=== PATIENT | male | born 1965 | race Caucasian/White ===

== ENCOUNTER → 2016-11-24 | Outpatient (CLI) | payer BC | LOC: RAD 08:05 | PROVIDERS: ATTEND Internal Medicine | DX: C61 Malignant neoplasm of prostate (principal) | CPT/HCPCS: 71260; 74177 ==

== ENCOUNTER → 2016-11-27 | Outpatient (CLI) | payer BC | LOC: RAD 08:17 | PROVIDERS: ATTEND Internal Medicine | DX: C61 Malignant neoplasm of prostate (principal); C79.51 Secondary malignant neoplasm of bone | CPT/HCPCS: 78306; A9503; Q9969 ==

== ENCOUNTER 2017-01-24 08:19 | Day surgery (SDC) | payer BC ==
[~2017-01-24 08:19] MED LIST: BACITRACIN INJ 50,000 UNIT VIAL INJ PRN; CEFAZOLIN 1 GM/D5W RTU 1 GM/50 ML RTUPB IV PRN; DEXTROSE 5%-1/2 NORMAL SALINE 1,000 ML IV PRN
[2017-01-24 09:05] LABS: ABSOLUTE EOSINOPHILS # (AUTO) 0.3 10^3/uL (0.0-0.6); ABSOLUTE MONOCYTES (AUTO) 0.4 10^3/uL (0.1-1.4); ABSOLUTE NEUT (AUTO) 7.6 10^3/uL (1.7-8.2); BASOPHILS % (AUTO) 0.4 % (0-2); EOSINOPHILS % (AUTO) 2.7 % (0-6); HEMATOCRIT 37.7 % (37.9-51.0); HEMOGLOBIN 12.8 g/dL (13.5-17.0); HGB HCT DIFFERENCE 0.7; LYMPHOCYTES % (AUTO) 19.5 % (13-45); MEAN CORPUSCULAR HEMOGLOBIN 29.8 pg (27.0-33.4); MEAN CORPUSCULAR VOLUME 88 fl (80-97); MONOCYTES % (AUTO) 4.3 % (3-13); RED BLOOD COUNT 4.31 10^6/uL (4.35-5.55); RED CELL DISTRIBUTION WIDTH 13.2 % (11.5-14.0); SEGMENTED NEUTROPHILS % (AUTO) 73.1 % (42-78); WHITE BLOOD COUNT 10.5 10^3/uL (4.0-10.5)
[2017-01-24] MEDS ORDERED: FENTANYL CITRATE INJ/PF 100 MCG/2 ML AMPUL ONE (09:25)
[2017-01-24] MEDS ORDERED: MIDAZOLAM 2 MG/2 ML INJ ONE (09:25)
[2017-01-24 09:33] LABS: ANION GAP 13 (5-19); BLOOD UREA NITROGEN 24 mg/dL (7-20); CARBON DIOXIDE 27 mmol/L (22-30); CHLORIDE 103 mmol/L (98-107); CREATININE RESULT 0.93 mg/dL (0.52-1.25); GLUCOSE 100 mg/dL (75-110); POTASSIUM 4.5 mmol/L (3.6-5.0); SODIUM 142.7 mmol/L (137-145)
[2017-01-24] MEDS ORDERED: HEPARIN SODIUM,PORCINE/NS/PF 2,000 UNIT/1,000 ML RTUINJ IV ONE (09:59)
[2017-01-24] MEDS ORDERED: LIDOCAINE 0.5% INJ-PF (5 MG/ML) 50 ML SDV ONE (09:59)
[2017-01-24] MEDS ORDERED: OXYCODONE-ACETAMINOPHEN 5-325 MG TABLET ONE (10:02)
[2017-01-24] MEDS ORDERED: DIAZEPAM 5 MG TABLET ONE (10:03)
--- NOTE | 2017-01-24 12:14 | PDOC DISCHARGE SUMMARY ---
Discharge Summary (SDC) - Discharge Final Diagnosis: Prostate cancer Date of Surgery: 01/24/17 Discharge Date: 01/24/17 Condition: Good Treatment or Instructions: #1 discharge patient home after achieving ASU criteria. #2 continue medications per medication reconciliation sheet. #3 follow-up in office by appointment in about 1 week, call for appointment. #4 dressing to be left on until office. #5 may have scheduled treatments. Through PermCath. Hold off on using Port-A- Cath for at least 1 week, if possible. #6 may shower starting in 48 hours. Important to keep dressings clean and dry Discharge Diet: As Tolerated Respiratory Treatments at Home: Deep Breathing/Coughing Discharge Activity: Activity As Tolerated Report the Following to Your Physician Immediately: Shortness of Breath, Unusual Bleeding
[2017-01-24 14:14] VITALS: BP 110/74
--- NOTE | 2017-01-24 21:15 | EKG REPORT ---
SEVERITY:- NORMAL ECG - SINUS RHYTHM : Confirmed by: Beverly Elder 24-Jan-2017 21:15:01
--- NOTE | 2017-01-25 14:10 | Operative Report ---
Operative Report DATE OF SURGERY: 01/24/17 PREOPERATIVE DIAGNOSIS: Prostate cancer POSTOPERATIVE DIAGNOSIS: Prostate cancer OPERATION: #1 ultrasound evaluation and needle access into the left internal jugular vein. #2 insertion of Port-A-Cath via real-time access in the left internal jugular vein. #3 ultrasound evaluation and needle access into the right internal jugular vein. #4 insertion of permacatheter via real-time access in the right internal jugular vein. #5 angiogram and interpretation. SURGEON: CHANTELLE JONES MANAGER DIESEL: none ANESTHESIA: Moderate Sedation TISSUE REMOVED OR ALTERED: Not applicable COMPLICATIONS: None ESTIMATED BLOOD LOSS: 10 mL. INTRAOPERATIVE FINDINGS: Of satisfactory internal jugular veins each about 1.5 cm in diameter. Satisfactory and safe access on the real-time ultrasound guidance. Good position of the catheters with the tips well down in the right atrium and the case of the perm catheter, at the superior vena cava atrial junction in the case of the Port-A-Cath. Easy egress of blood through all ports and ingress of heparinized solution. Catheter angiograms demonstrates is demonstrated smooth flow of contrast through the right atrium, ventricle and pulmonary outflow tract. PROCEDURE: After obtaining informed consent, the patient was taken to the Benefits Consultant and positioned supine. The left neck and chest were prepared with chlorhexidine and draped out with sterile linen. After the " universal timeout", in which it was verified that the patient continued to receive antibiotic, the procedure commenced. A steriley sheathed ultrasound probe was used to evaluate the left internal jugular vein. Local anesthesia was infiltrated adjacent to the probe. Access into the left internal jugular vein was obtained using a micropuncture needle, followed by micropuncture wire and then a micropuncture catheter. This was followed by introduction of a 0.035 guidewire the tip of which was placed down into the inferior vena cava . The port sites was marked , locally anesthetized and incision made. Dissection now proceeded to the deep subcutaneous subcutaneous tissues so that a pocket for the port was made. Meticulous hemostasis was secured and the catheter was tunneled between the 2 incisions. Proximally, the catheter was now positioned using a peel-away sheath. Distally the catheter was tailored to an appropriate length and then mated to the port using the contained fixating device. The port was now placed in the pocket and the catheter optimally positioned. The port was accessed with a Zendejas needle and an angiogram done under digital subtraction. The findings as dictated. With adequate and satisfactory positioning, the lumen was irrigated with heparinized solution. The wounds were now closed using interrupted 3-0 PDS to the subcutaneous tissues and a continuous subcuticular suture of 4-0 Monocryl to the skin. These are reinforced with Steri-Strips over benzoin and then dressings applied. The right neck and chest were prepared with chlorhexidine and draped out with sterile linen. After the " universal timeout", in which it was verified that the patient continued to receive antibiotic, the procedure commenced. A steriley sheathed ultrasound probe was used to evaluate the right internal jugular vein. Local anesthesia was infiltrated adjacent to the probe. Access into the right internal jugular vein was obtained using a micropuncture needle, followed by micropuncture wire and then a micropuncture catheter. This was followed by introduction of a 0.035 guidewire the tip of which was placed down into the inferior vena cava . A 23 cm long perm catheter was now positioned over the chest and an exit site marked and locally anesthetized ,the catheter was placed between the 2 incisions. Proximally, the catheter was now positioned using a peel-away sheath, after dilation. Easy ingress of heparinized solution and egress of blood obtained through both ports. A completion angiogram was done by injecting contrast. The findings were as dictated. The neck incision was now closed using interrupted 3-0 PDS to the subcutaneous tissues, the catheter was anchored at the exit site using 3-0 PDS. A Biopatch device was now placed adjacent to the catheter. Dressings were applied and the procedure concluded. Copies of the dictated operative report for Dr. Chantelle Forde MD.concluded. Copies of the dictated operative report for Dr. Chantelle Forde MD.
== END 2017-01-24 13:30 | disposition home or self-care (01) ==
LOC: CCL 08:19
PROVIDERS: ATTEND Surgery
PROC: 05HM33Z Insertion of Infusion Device into Right Internal Jugular Vein, Percutaneous Approach (ICD-10-PCS; principal; 2017-01-24)
PROC: 05HN33Z Insertion of Infusion Device into Left Internal Jugular Vein, Percutaneous Approach (ICD-10-PCS; 2017-01-24)
DX: C61 Malignant neoplasm of prostate (principal); I10 Essential (primary) hypertension; F17.210 Nicotine dependence, cigarettes, uncomplicated; Z79.899 Other long term (current) drug therapy; Z79.891 Long term (current) use of opiate analgesic; Z88.2 Allergy status to sulfonamides
CPT/HCPCS: 36415; 85025; 80048; 36558; 36561; 76937; 77001; 71010; 93005; 93010; C1788; C1752 ×2; Q9967; J2250; J3490 ×2; J0690; J3010; J1644

== ENCOUNTER → 2017-05-07 | Outpatient (CLI) | payer BC ==
--- NOTE | 2017-05-07 12:12 | RADIOLOGY REPORT (SQ) ---
EXAM DESCRIPTION: CT CHEST WITH COMPLETED DATE/TIME: 05/07/2017 9:38 am REASON FOR STUDY: PROSTATE CA (C61), BONE CA (C79.51) C61 MALIGNANT NEOPLASM OF PROSTATE C79.51 SE CONDARY MALIGNANT NEOPLASM OF BONE COMPARISON: 11/24/2016 TECHNIQUE: CT scan of the chest performed using helical scanning technique with dynamic intravenous contrast injection. Images reviewed with lung, soft tissue and bone windows. Reconstructed coronal and sagittal MPR images reviewed. All images stored on PACS. All CT scanners at this facility use dose modulation, iterative reconstruction, and/or weight based d osing when appropriate to reduce radiation dose to as low as reasonably achievable (ALARA). [facility]: Dose Right [facility]: CareDose [facility]: Dose Right [facility]: Teradose 4D [facility]: [employer] CONTRAST TYPE AND DOSE: contrast/concentration: Isovue 370.00 mg/ml; Total Contrast Delivered: 84.0 ml; Total Saline Delivered: RENAL FUNCTION: BUN 21, creatinine 1.01 RADIATION DOSE: . LIMITATIONS: None. FINDINGS: LUNGS AND PLEURA: No opacities, nodules, masses. No pneumothorax. No effusions. HILAR AND MEDIASTINAL STRUCTURES: No identified masses or abnormal nodes. HEART AND VASCULAR STRUCTURES: No aneurysm or dissection. No central pulmonary emboli. No pericardi al effusion. HARDWARE: Wimizg-G-Qosv is in place. UPPER ABDOMEN: No significant findings. Limited exam. THYROID AND OTHER SOFT TISSUES: No masses. No adenopathy. BONES: There is diffuse osseous metastatic lesions stable in appearance. OTHER: No other significant finding. IMPRESSION: Widespread bony metastatic disease stable from prior exam. No other significant finding s. TECHNICAL DOCUMENTATION: JOB ID: [id number] Quality ID # 436: Final reports with documentation of one or more dose reduction techniques (e.g., Au tomated exposure control, adjustment of the mA and/or kV according to patient size, use of iterative reconstruction technique) 2010 [employer]- All Rights Reserved
--- NOTE | 2017-05-07 12:15 | RADIOLOGY REPORT (SQ) ---
EXAM DESCRIPTION: CT ABD/PELVIS WITH IV ORAL COMPLETED DATE/TIME: 05/07/2017 9:38 am REASON FOR STUDY: PROSTATE CA (C61), BONE CA (C79.51) C61 MALIGNANT NEOPLASM OF PROSTATE C79.51 SE CONDARY MALIGNANT NEOPLASM OF BONE COMPARISON: 11/24/2016 TECHNIQUE: CT scan of the abdomen and pelvis performed using helical scanning technique with dynamic intravenous contrast injection. No oral contrast. Images reviewed with lung, soft tissue, and bone windows. Reconstructed coronal and sagittal MPR images reviewed. Delayed images for evaluation of the urinary system also acquired. All images stored on PACS. All CT scanners at this facility use dose modulation, iterative reconstruction, and/or weight based d osing when appropriate to reduce radiation dose to as low as reasonably achievable (ALARA). [facility]: Dose Right [facility]: CareDose [facility]: Dose Right [facility]: Teradose 4D [facility]: [employer] CONTRAST TYPE AND DOSE: 84 mL Isovue 370 RENAL FUNCTION: BUN 21, creatinine 1.01 RADIATION DOSE: Up-to-date CT equipment and radiation dose reduction techniques were employed. CTDIv ol: 6.5 - 7.5 mGy. DLP: 1038 mGy-cm.. LIMITATIONS: None. FINDINGS: LOWER CHEST: No significant findings. No nodules or infiltrates. LIVER: Normal size. No masses. No dilated ducts. SPLEEN: Normal size. No focal lesions. PANCREAS: No masses. No significant calcifications. No adjacent inflammation or peripancreatic fluid collections. Pancreatic duct not dilated. GALLBLADDER: No identified stones by CT criteria. No inflammatory changes to suggest cholecystitis. ADRENAL GLANDS: No significant masses or asymmetry. RIGHT KIDNEY AND URETER: No solid masses. No significant calcifications. No hydronephrosis or hyd roureter. LEFT KIDNEY AND URETER: No solid masses. No significant calcifications. No hydronephrosis or hydr oureter. AORTA AND VESSELS: No aneurysm. No dissection. Renal arteries, SMA, celiac without stenosis. RETROPERITONEUM: No retroperitoneal adenopathy, hemorrhage or masses. BOWEL AND PERITONEAL CAVITY: No masses or inflammatory changes. No free fluid or peritoneal masses. APPENDIX: Surgically absent. PELVIS: No mass. No free fluid. Normal bladder. ABDOMINAL WALL: No masses. No hernias. BONES: There is widespread bony metastatic disease stable from prior study. OTHER: No other significant finding. IMPRESSION: Widespread osseous metastasis in the appendicular and axial skeleton. No other signific ant findings. TECHNICAL DOCUMENTATION: JOB ID: [id number] Quality ID # 436: Final reports with documentation of one or more dose reduction techniques (e.g., Au tomated exposure control, adjustment of the mA and/or kV according to patient size, use of iterative reconstruction technique) 2010 [employer]- All Rights Reserved
--- NOTE | 2017-05-07 15:01 | RADIOLOGY REPORT (SQ) ---
EXAM DESCRIPTION: NM WHOLE BODY BONE SCAN COMPLETED DATE/TIME: 05/07/2017 1:58 pm REASON FOR STUDY: PROSTATE CA (C61), BONE CA (C79.51) C61 MALIGNANT NEOPLASM OF PROSTATE C79.51 SE CONDARY MALIGNANT NEOPLASM OF BONE COMPARISON: 11/27/2016 RADIONUCLIDE AND DOSE: 20 millicuries Tc99m MDP. The route of agent administration: Intravenous. ADDITIONAL DRUGS AND DOSES: None. TECHNIQUE: Routine delayed images at 3 hours post radionuclide injection acquired of the bony skelet on including anterior and posterior whole-body projections and additional focused images as needed. LIMITATIONS: None. FINDINGS: BONES: There is abnormal uptake in the thoracic spine, lumbar spine, right hip, sacroiliac joints, above the left acetabulum, multiple ribs, the left side of the calvarium, the left side of t he left orbit. There are new areas of increased uptake in the thoracic spine and the uptake at the m argin of the left orbit has increased. KIDNEYS: Symmetric excretion without obstruction. OTHER: No other significant finding. IMPRESSION: Metastatic disease to bone which has worsened since the prior study. COMMENT: PQRS 3570F: Current bone scan is compared with any available plain radiographs, prior bone scans, and CT/MRI. TECHNICAL DOCUMENTATION: JOB ID: [id number] [employer]- All Rights Reserved
== END ==
LOC: RAD 08:38
PROVIDERS: ATTEND Internal Medicine
DX: C61 Malignant neoplasm of prostate (principal); C79.51 Secondary malignant neoplasm of bone
CPT/HCPCS: 78306; 71260; 74177; A9561; Q9969

== ENCOUNTER → 2017-08-16 | Outpatient (CLI) | payer BC ==
--- NOTE | 2017-08-16 10:34 | RADIOLOGY REPORT (SQ) ---
EXAM DESCRIPTION: CT CHEST WITH; CT ABD/PELVIS WITH IV ONLY COMPLETED DATE/TIME: 08/16/2017 9:42 am REASON FOR STUDY: C61 MALIGNANT NEOPLASM OF PROSTATE C61 MALIGNANT NEOPLASM OF PROSTATE COMPARISON: Bone scan 05/07/2017, 11/27/2016, 11/22/2015 CT chest abdomen pelvis 05/07/2017, 11/24/2016, 11/16/2015 CONTRAST TYPE AND DOSE: contrast/concentration: Isovue 370.00 mg/ml; Total Contrast Delivered: 84.0 ml; Total Saline Delivered: 69.0 ml RENAL FUNCTION: Creatinine 0.6 TECHNIQUE: CT scan of the chest performed using helical scanning technique with dynamic intravenous contrast injection. Images reviewed with lung, soft tissue and bone windows. Reconstructed coronal a nd sagittal MPR images reviewed. All images stored on PACS. CT scan of the abdomen and pelvis performed with intravenous and without oral contrastusing helical s sammie technique with dynamic intravenous contrast injection. Images reviewed with lung, soft tissu e and bone windows. Reconstructed coronal and sagittal MPR images reviewed. Delayed images for eval uation of the urinary system also acquired and evaluated. All images stored on PACS. All CT scanners at this facility use dose modulation, iterative reconstruction, and/or weight based d osing when appropriate to reduce radiation dose to as low as reasonably achievable (ALARA). [facility]: Dose Right [facility]: CareDose [facility]: Dose Right [facility]: Teradose 4D [facility]: [employer] RADIATION DOSE: Up-to-date CT equipment and radiation dose reduction techniques were employed. CTDIv ol: 6.1 - 7.0 mGy. DLP: 963 mGy-cm. . LIMITATIONS: None. FINDINGS: CHEST: LUNGS AND PLEURA: No opacities, nodules, masses. No pneumothorax. No effusions. HILAR AND MEDIASTINAL STRUCTURES: No identified masses or abnormal nodes. HEART AND VASCULAR STRUCTURES: No aneurysm or dissection. No central pulmonary emboli. No pericardi al effusion. HARDWARE: Left permanent central line tip superior vena cava THYROID AND OTHER SOFT TISSUES: No masses. No adenopathy. BONES: Diffuse osseous metastatic lesions from patient's known prostate cancer are stable. OTHER: No other significant finding. ABDOMEN AND PELVIS: LIVER: Normal size. No masses. No dilated ducts. SPLEEN: Normal size. No focal lesions. PANCREAS: No masses. No significant calcifications. No adjacent inflammation or peripancreatic fluid collections. Pancreatic duct not dilated. GALLBLADDER: No identified stones by CT criteria. No inflammatory changes to suggest cholecystitis. ADRENAL GLANDS: No significant masses or asymmetry. RIGHT KIDNEY AND URETER: No solid masses. No significant calcification. No hydronephrosis or hydroure ter. LEFT KIDNEY AND URETER: No solid masses. 2 mm left midpole intrarenal nonobstructive calcification. No hydronephrosis or hydroureter. AORTA AND VESSELS: No aneurysm. No dissection. Renal arteries, SMA, celiac without stenosis. RETROPERITONEUM: No retroperitoneal adenopathy, hemorrhage or masses. BOWEL AND PERITONEAL CAVITY: No masses or inflammatory changes. No free fluid or peritoneal masses. APPENDIX: Surgically absent ABDOMINAL WALL: No masses. No hernias. BONES: Diffuse sclerotic osseous metastatic lesions from patient's known prostate malignancy. No pat hologic fracture. PELVIS: Post prostatectomy. No free fluid. No masses or adenopathy. IMPRESSION: Diffuse osseous metastatic lesions over the chest abdomen and pelvis, similar compared t o previous exams. TECHNICAL DOCUMENTATION: JOB ID: [id number] Quality ID # 436: Final reports with documentation of one or more dose reduction techniques (e.g., Au tomated exposure control, adjustment of the mA and/or kV according to patient size, use of iterative reconstruction technique) 2010 [employer]- All Rights Reserved
--- NOTE | 2017-08-16 14:23 | RADIOLOGY REPORT (SQ) ---
EXAM DESCRIPTION: NM WHOLE BODY BONE SCAN COMPLETED DATE/TIME: 08/16/2017 1:27 pm REASON FOR STUDY: C61 MALIGNANT NEOPLASM OF PROSTATE C61 MALIGNANT NEOPLASM OF PROSTATE COMPARISON: BONE SCAN 05/07/2017, 11/27/2016, 11/22/2015 CT CHEST ABDOMEN PELVIS 08/16/2017, 05/07/2017 RADIONUCLIDE AND DOSE: 21.5 millicuries Tc99m MDP. The route of agent administration: Intravenous. ADDITIONAL DRUGS AND DOSES: None. TECHNIQUE: Routine delayed images at 3 hours post radionuclide injection acquired of the bony skelet on including anterior and posterior whole-body projections and additional focused images as needed. LIMITATIONS: None. FINDINGS: BONES: There is persistent increased uptake throughout the axial skeleton and right proxim al femur, unchanged from prior study. Stable increased uptake over the left calvarium and left upper outer orbital rim KIDNEYS: Symmetric excretion without obstruction. OTHER: No other significant finding. IMPRESSION: Persistent skeletal uptake similar compared to prior bone scan exams COMMENT: Quality measure 147: Current bone scan is compared with any available plain radiographs, p rior bone scans, and CT/MRI. TECHNICAL DOCUMENTATION: JOB ID: [id number] [employer]- All Rights Reserved
== END ==
LOC: RAD 09:00
PROVIDERS: ATTEND Internal Medicine
DX: C61 Malignant neoplasm of prostate (principal); C79.51 Secondary malignant neoplasm of bone
CPT/HCPCS: 78306; 71260; 74177; A9561; Q9969

== ENCOUNTER 2017-10-18 11:01 | Outpatient (CLI) | payer BC ==
[~2017-10-18 11:01] MED LIST changes: -BACITRACIN INJ 50,000 UNIT VIAL INJ PRN; -CEFAZOLIN 1 GM/D5W RTU 1 GM/50 ML RTUPB IV PRN; -DEXTROSE 5%-1/2 NORMAL SALINE 1,000 ML IV PRN; +FERRIC CARBOXYMALTOSE 750 MG in NORMAL SALINE 250 ML IV PRN; +NORMAL SALINE 250 ML IV PRN
[2017-10-18 11:31] VITALS: BP 110/68
== END 2017-10-18 14:02 | disposition home or self-care (01) ==
LOC: II 11:01 → 5TH 11:02 → II 14:02
PROVIDERS: ATTEND Internal Medicine
PROC: 3E043GC Introduction of Other Therapeutic Substance into Central Vein, Percutaneous Approach (ICD-10-PCS; principal; 2017-10-18)
DX: D50.8 Other iron deficiency anemias (principal); K90.49 Malabsorption due to intolerance, not elsewhere classified
CPT/HCPCS: 96367; J7050; J1439; 96365

== ENCOUNTER 2017-10-25 09:58 | Outpatient (CLI) | payer BC ==
[2017-10-25 10:23] VITALS: BP 113/64
== END 2017-10-25 11:00 | disposition home or self-care (01) ==
LOC: II 09:58 → 5TH 10:24 → II 11:00
PROVIDERS: ATTEND Internal Medicine
PROC: 3E033GC Introduction of Other Therapeutic Substance into Peripheral Vein, Percutaneous Approach (ICD-10-PCS; principal; 2017-10-25)
DX: D50.8 Other iron deficiency anemias (principal); K90.49 Malabsorption due to intolerance, not elsewhere classified
CPT/HCPCS: 96367; J7050; J1439; 96374

== ENCOUNTER → 2017-11-01 | Outpatient (CLI) | payer BC ==
--- NOTE | 2017-11-01 16:44 | RADIOLOGY REPORT (SQ) ---
EXAM DESCRIPTION: CT CHEST WITH; CT ABD/PELVIS WITH IV ONLY COMPLETED DATE/TIME: 11/01/2017 1:28 pm REASON FOR STUDY: PROSTATE CA (C61) C61 MALIGNANT NEOPLASM OF PROSTATE RENAL FUNCTION: Creatinine 0.9 TECHNIQUE: CT scan of the chest performed using helical scanning technique with dynamic intravenous contrast injection. Images reviewed with lung, soft tissue and bone windows. Reconstructed coronal a nd sagittal MPR images reviewed. All images stored on PACS. CT scan of the abdomen and pelvis performed with intravenous and without oral contrastusing helical s sammie technique with dynamic intravenous contrast injection. Images reviewed with lung, soft tissu e and bone windows. Reconstructed coronal and sagittal MPR images reviewed. Delayed images for eval uation of the urinary system also acquired and evaluated. All images stored on PACS. All CT scanners at this facility use dose modulation, iterative reconstruction, and/or weight based d osing when appropriate to reduce radiation dose to as low as reasonably achievable (ALARA). [facility]: Dose Right [facility]: CareDose [facility]: Dose Right [facility]: Teradose 4D [facility]: [employer] RADIATION DOSE: CT Rad equipment meets quality standard of care and radiation dose reduction techniq ues were employed. CTDIvol: 5.5 - 6.5 mGy. DLP: 859 mGy-cm. . LIMITATIONS: None. FINDINGS: CHEST: LUNGS AND PLEURA: No opacities, nodules, masses. No pneumothorax. No effusions. HILAR AND MEDIASTINAL STRUCTURES: No identified masses or abnormal nodes. HEART AND VASCULAR STRUCTURES: No aneurysm or dissection. No central pulmonary emboli. No pericardi al effusion. HARDWARE: Left-sided permanent central line tip superior vena cava THYROID AND OTHER SOFT TISSUES: No masses. No adenopathy. BONES: Extensive bony metastatic disease in the spine, ribs, sternum, and bilateral scapulae. OTHER: No other significant finding. ABDOMEN AND PELVIS: LIVER: Normal size. No masses. No dilated ducts. SPLEEN: Normal size. No focal lesions. PANCREAS: No masses. No significant calcifications. No adjacent inflammation or peripancreatic fluid collections. Pancreatic duct not dilated. GALLBLADDER: Contracted, not well seen ADRENAL GLANDS: No significant masses or asymmetry. RIGHT KIDNEY AND URETER: No solid masses. No significant calcification. No hydronephrosis or hydroure ter. LEFT KIDNEY AND URETER: No solid masses. No significant calcification. No hydronephrosis or hydrouret er. AORTA AND VESSELS: No aneurysm. No dissection. Renal arteries, SMA, celiac without stenosis. RETROPERITONEUM: No retroperitoneal adenopathy, hemorrhage or masses. BOWEL AND PERITONEAL CAVITY: No masses or inflammatory changes. No free fluid or peritoneal masses. APPENDIX: Surgically absent ABDOMINAL WALL: No masses. No hernias. PELVIS: No mass or free fluid. Normal bladder. BONES: Bony metastatic disease in the lumbar spine, sacrum, pelvis and bilateral proximal femurs OTHER: No other significant finding. IMPRESSION: Diffuse bony metastatic disease. No visceral metastatic lesions or pathologic adenopathy. TECHNICAL DOCUMENTATION: JOB ID: [id number] Quality ID # 436: Final reports with documentation of one or more dose reduction techniques (e.g., Au tomated exposure control, adjustment of the mA and/or kV according to patient size, use of iterative reconstruction technique) 2010 [employer]- All Rights Reserved COMPARISON: None. Bone scan 08/16/2017 CT chest abdomen and pelvis 11/16/2015, 11/24/2016, 05/07/2017, 08/16/2017 CONTRAST TYPE AND DOSE: contrast/concentration: Isovue 370.00 mg/ml; Total Contrast Delivered: 82.0 ml; Total Saline Delivered: 68.0 ml
== END ==
LOC: RAD 12:48
PROVIDERS: ATTEND Internal Medicine
DX: C61 Malignant neoplasm of prostate (principal); C79.51 Secondary malignant neoplasm of bone
CPT/HCPCS: 71260; 74177

== ENCOUNTER → 2017-11-14 | Outpatient (CLI) | payer BC ==
--- NOTE | 2017-11-14 13:31 | RADIOLOGY REPORT (SQ) ---
EXAM DESCRIPTION: NM WHOLE BODY BONE SCAN COMPLETED DATE/TIME: 11/14/2017 1:19 pm REASON FOR STUDY: PROSTATE CA (C61), PAIN IN UNSPEC SHOULDER (M25.519) C61 MALIGNANT NEOPLASM OF [place] M25.519 PAIN IN UNSPECIFIED SHOULDER COMPARISON: 08/16/2017 RADIONUCLIDE AND DOSE: 20.6 millicuries Tc99m MDP. The route of agent administration: Intravenous. ADDITIONAL DRUGS AND DOSES: None. TECHNIQUE: Routine delayed images at 3 hour post radionuclide injection acquired of the bony skeleto n including anterior and posterior whole-body projections and additional focused images as needed. LIMITATIONS: None. FINDINGS: BONES: Persistent increased uptake in the axial skeleton, left calvarium, left orbital rim , and proximal right femur. No definite new areas of abnormal uptake are identified. KIDNEYS: Symmetric excretion without obstruction. OTHER: No other significant finding. IMPRESSION: Stable bone metastasis. COMMENT: Quality measure 147: Current bone scan is compared with any available plain radiographs, p rior bone scans, and CT/MRI. TECHNICAL DOCUMENTATION: JOB ID: [id number] [employer]- All Rights Reserved
== END ==
LOC: RAD 08:58
PROVIDERS: ATTEND Internal Medicine
DX: C61 Malignant neoplasm of prostate (principal); M25.511 Pain in right shoulder
CPT/HCPCS: 78306; A9561; Q9969

== ENCOUNTER → 2018-01-25 | Outpatient (CLI) | payer BC ==
--- NOTE | 2018-01-25 10:41 | RADIOLOGY REPORT (SQ) ---
EXAM DESCRIPTION: CT CHEST WITH COMPLETED DATE/TIME: 01/25/2018 9:27 am REASON FOR STUDY: PROSTATE CA C61 MALIGNANT NEOPLASM OF PROSTATE COMPARISON: 11/01/2017 TECHNIQUE: CT scan of the chest performed using helical scanning technique with dynamic intravenous contrast injection. Images reviewed with lung, soft tissue and bone windows. Reconstructed coronal and sagittal MPR images reviewed. All images stored on PACS. All CT scanners at this facility use dose modulation, iterative reconstruction, and/or weight based d osing when appropriate to reduce radiation dose to as low as reasonably achievable (ALARA). [facility]: Dose Right [facility]: CareDose [facility]: Dose Right [facility]: Teradose 4D [facility]: [employer] [place] CONTRAST TYPE AND DOSE: See separate report of the same date. RENAL FUNCTION: See separate report of the same date. RADIATION DOSE: . LIMITATIONS: None. FINDINGS: LUNGS AND PLEURA: No opacities, nodules, masses. No pneumothorax. No effusions. HILAR AND MEDIASTINAL STRUCTURES: No identified masses or abnormal nodes. HEART AND VASCULAR STRUCTURES: No aneurysm or dissection. No central pulmonary emboli. No pericardi al effusion. HARDWARE: Left-sided port tip in the SVC. UPPER ABDOMEN: See separate report of the CT of the abdomen. THYROID AND OTHER SOFT TISSUES: No masses. No adenopathy. BONES: Sclerotic metastasis not significantly changed. OTHER: No other significant finding. IMPRESSION: Bone metastasis. No significant change. TECHNICAL DOCUMENTATION: JOB ID: [id number] Quality ID # 436: Final reports with documentation of one or more dose reduction techniques (e.g., Au tomated exposure control, adjustment of the mA and/or kV according to patient size, use of iterative reconstruction technique) 2010 [email or web address]- All Rights Reserved Reading location - IP/workstation name: [email or web address]
--- NOTE | 2018-01-25 10:58 | RADIOLOGY REPORT (SQ) ---
EXAM DESCRIPTION: CT ABD/PELVIS WITH IV ONLY COMPLETED DATE/TIME: 01/25/2018 9:27 am REASON FOR STUDY: PROSTATE CA C61 MALIGNANT NEOPLASM OF PROSTATE COMPARISON: 11/01/2017 TECHNIQUE: CT scan of the abdomen and pelvis performed using helical scanning technique with dynamic intravenous contrast injection. No oral contrast. Images reviewed with lung, soft tissue, and bone windows. Reconstructed coronal and sagittal MPR images reviewed. Delayed images for evaluation of the urinary system also acquired. All images stored on PACS. All CT scanners at this facility use dose modulation, iterative reconstruction, and/or weight based d osing when appropriate to reduce radiation dose to as low as reasonably achievable (ALARA). [facility]: Dose Right [facility]: CareDose [facility]: Dose Right [facility]: Teradose 4D [facility]: [employer] CONTRAST TYPE AND DOSE: contrast/concentration: Isovue 370.00 mg/ml; Total Contrast Delivered: 82.0 ml; Total Saline Delivered: 68.0 ml RENAL FUNCTION: GFR > 60. RADIATION DOSE: CT Rad equipment meets quality standard of care and radiation dose reduction techniq ues were employed. CTDIvol: 6.0 - 8.7 mGy. DLP: 1157 mGy-cm.. LIMITATIONS: Artifact from clips right lower quadrant. FINDINGS: LOWER CHEST: See separate report of the CT of the chest. LIVER: Normal size. No masses. No dilated ducts. SPLEEN: Normal size. No focal lesions. PANCREAS: No masses. No significant calcifications. No adjacent inflammation or peripancreatic fluid collections. Pancreatic duct not dilated. GALLBLADDER: No identified stones by CT criteria. No inflammatory changes to suggest cholecystitis. ADRENAL GLANDS: No significant masses or asymmetry. RIGHT KIDNEY AND URETER: No solid masses. No significant calcifications. No hydronephrosis or hyd roureter. LEFT KIDNEY AND URETER: No solid masses. No significant calcifications. No hydronephrosis or hydr oureter. AORTA AND VESSELS: No aneurysm. No dissection. Renal arteries, SMA, celiac without stenosis. RETROPERITONEUM: No retroperitoneal adenopathy, hemorrhage or masses. BOWEL AND PERITONEAL CAVITY: No masses or inflammatory changes. No free fluid or peritoneal masses. APPENDIX: Not visualized. PELVIS: No mass. No free fluid. Normal bladder. ABDOMINAL WALL: No masses. No hernias. BONES: Diffuse sclerotic metastatic lesions. No pathologic fracture. OTHER: No other significant finding. IMPRESSION: Skeletal metastasis. No significant change. TECHNICAL DOCUMENTATION: JOB ID: [id number] Quality ID # 436: Final reports with documentation of one or more dose reduction techniques (e.g., Au tomated exposure control, adjustment of the mA and/or kV according to patient size, use of iterative reconstruction technique) 2010 [employer]- All Rights Reserved Reading location - IP/workstation name: [email or web address] [id number]
--- NOTE | 2018-01-25 14:43 | RADIOLOGY REPORT (SQ) ---
EXAM DESCRIPTION: NM WHOLE BODY BONE SCAN COMPLETED DATE/TIME: 01/25/2018 2:16 pm REASON FOR STUDY: PROSTATE CA C61 MALIGNANT NEOPLASM OF PROSTATE COMPARISON: 11/14/2017 RADIONUCLIDE AND DOSE: 21.6 millicuries Tc99m HDP. The route of agent administration: Intravenous. ADDITIONAL DRUGS AND DOSES: None. TECHNIQUE: Routine delayed images at 3 hour post radionuclide injection acquired of the bony skeleto n including anterior and posterior whole-body projections and additional focused images as needed. LIMITATIONS: None. FINDINGS: BONES: Persistent increased uptake in the axial skeleton, left calvarium, left orbital rim , proximal right femur. There is less intense uptake at several lesions in the thoracic spine, howev er the significance is uncertain. No new areas of abnormal uptake. KIDNEYS: Symmetric excretion without obstruction. OTHER: No other significant finding. IMPRESSION: Stable bone metastasis. COMMENT: Quality measure 147: Current bone scan is compared with any available plain radiographs, p rior bone scans, and CT/MRI. TECHNICAL DOCUMENTATION: JOB ID: [id number] [email or web address]- All Rights Reserved Reading location - IP/workstation name: [facility]
== END ==
LOC: RAD 08:18
PROVIDERS: ATTEND Internal Medicine
DX: C61 Malignant neoplasm of prostate (principal); C79.51 Secondary malignant neoplasm of bone
CPT/HCPCS: 78306; 71260; 74177; A9561; Q9969

== ENCOUNTER → 2018-04-19 | Outpatient (CLI) | payer BC ==
--- NOTE | 2018-04-19 10:47 | RADIOLOGY REPORT (SQ) ---
EXAM DESCRIPTION: CT CHEST WITH; CT ABD/PELVIS WITH IV ONLY COMPLETED DATE/TIME: 04/19/2018 8:56 am REASON FOR STUDY: PROSTATE CA C61 MALIGNANT NEOPLASM OF PROSTATE COMPARISON: CT chest abdomen pelvis 01/25/2018, 11/01/2017, 08/16/2017 Bone scans 01/25/2018, 11/14/2017, 08/16/2017 CONTRAST TYPE AND DOSE: contrast/concentration: Isovue 370.00 mg/ml; Total Contrast Delivered: 79.0 ml; Total Saline Delivered: 68.0 ml RENAL FUNCTION: Creatinine 0.9 TECHNIQUE: CT scan of the chest performed using helical scanning technique with dynamic intravenous contrast injection. Images reviewed with lung, soft tissue and bone windows. Reconstructed coronal a nd sagittal MPR images reviewed. All images stored on PACS. CT scan of the abdomen and pelvis performed with intravenous and without oral contrastusing helical s sammie technique with dynamic intravenous contrast injection. Images reviewed with lung, soft tissu e and bone windows. Reconstructed coronal and sagittal MPR images reviewed. Delayed images for eval uation of the urinary system also acquired and evaluated. All images stored on PACS. All CT scanners at this facility use dose modulation, iterative reconstruction, and/or weight based d osing when appropriate to reduce radiation dose to as low as reasonably achievable (ALARA). [facility]: Dose Right [facility]: CareDose [facility]: Dose Right [facility]: Teradose 4D [facility]: [employer] RADIATION DOSE: CT Rad equipment meets quality standard of care and radiation dose reduction techniq ues were employed. CTDIvol: 5.6 - 6.2 mGy. DLP: 825 mGy-cm. . LIMITATIONS: None. FINDINGS: CHEST: LUNGS AND PLEURA: No opacities, nodules, masses. No pneumothorax. No effusions. HILAR AND MEDIASTINAL STRUCTURES: No identified masses or abnormal nodes. HEART AND VASCULAR STRUCTURES: No aneurysm or dissection. No central pulmonary emboli. No pericardi al effusion. HARDWARE: Left permanent line with the tip in the superior vena cava THYROID AND OTHER SOFT TISSUES: No masses. No adenopathy. BONES: Diffuse bony metastatic disease, similar compared to previous exams OTHER: No other significant finding. ABDOMEN AND PELVIS: LIVER: Normal size. No masses. No dilated ducts. SPLEEN: Normal size. No focal lesions. PANCREAS: No masses. No significant calcifications. No adjacent inflammation or peripancreatic fluid collections. Pancreatic duct not dilated. GALLBLADDER: No identified stones by CT criteria. No inflammatory changes to suggest cholecystitis. ADRENAL GLANDS: No significant masses or asymmetry. RIGHT KIDNEY AND URETER: No solid masses. No significant calcification. No hydronephrosis or hydroure ter. LEFT KIDNEY AND URETER: No solid masses. No significant calcification. No hydronephrosis or hydrouret er. AORTA AND VESSELS: No aneurysm. No dissection. Renal arteries, SMA, celiac without stenosis. RETROPERITONEUM: No retroperitoneal adenopathy, hemorrhage or masses. BOWEL AND PERITONEAL CAVITY: No masses or inflammatory changes. No free fluid or peritoneal masses. APPENDIX: Surgically absent ABDOMINAL WALL: No masses. No hernias. PELVIS: No mass or free fluid. Normal bladder. BONES: Diffuse bony metastatic disease, with heavy burden of disease throughout the pelvis and right proximal femur. This is similar compared to previous studies OTHER: No other significant finding. IMPRESSION: Diffuse bony metastatic disease over the chest abdomen and pelvis Otherwise unremarkable study aside from post appendectomy change and a left-sided permanent central l ine with the tip in the superior vena cava TECHNICAL DOCUMENTATION: JOB ID: [id number] Quality ID # 436: Final reports with documentation of one or more dose reduction techniques (e.g., Au tomated exposure control, adjustment of the mA and/or kV according to patient size, use of iterative reconstruction technique) 2010 [employer]- All Rights Reserved Reading location - IP/workstation name: [facility]-RR
--- NOTE | 2018-04-19 16:19 | RADIOLOGY REPORT (SQ) ---
EXAM DESCRIPTION: NM WHOLE BODY BONE SCAN COMPLETED DATE/TIME: 04/19/2018 2:37 pm REASON FOR STUDY: PROSTATE CA C61 MALIGNANT NEOPLASM OF PROSTATE COMPARISON: Prior bone scan 06/25/2015, 11/14/2017, 01/25/2018 RADIONUCLIDE AND DOSE: 21 millicuries Tc99m MDP. The route of agent administration: Intravenous. ADDITIONAL DRUGS AND DOSES: None. TECHNIQUE: Routine delayed images at 3 hours post radionuclide injection acquired of the bony skelet on including anterior and posterior whole-body projections and additional focused images as needed. LIMITATIONS: None. FINDINGS: BONES: Stable bony metastatic lesions in the calvarium, right scapula, cervicothoracic and lumbar spine, pelvis, and right femur. Since 2014, patient has had radiation therapy to the lower thoracic and upper lumbar spine. No abnor mal uptake in this area is seen. KIDNEYS: Symmetric excretion without obstruction. OTHER: No other significant finding. IMPRESSION: Stable bony metastatic disease COMMENT: Quality measure 147: Current bone scan is compared with any available plain radiographs, p rior bone scans, and CT/MRI. TECHNICAL DOCUMENTATION: JOB ID: [id number] [employer]- All Rights Reserved Reading location - IP/workstation name: [email or web address]
== END ==
LOC: RAD 08:18
PROVIDERS: ATTEND Internal Medicine
DX: C61 Malignant neoplasm of prostate (principal); C79.51 Secondary malignant neoplasm of bone
CPT/HCPCS: 82565; 78306; 71260; 74177; A9561; Q9969

== ENCOUNTER → 2018-05-04 | Outpatient (CLI) | payer BC ==
--- NOTE | 2018-05-04 21:49 | RADIOLOGY REPORT (SQ) ---
EXAM DESCRIPTION: MRI RT LOWER JOINT COMBO COMPLETED DATE/TIME: 05/04/2018 11:27 am REASON FOR STUDY: LOW BACK PAIN/RAIN IN RIGHT HIP, SECONDARY MALIGNANT NEOPLASM OF BONE C79.51 SECO NDARY MALIGNANT NEOPLASM OF BONE COMPARISON: None. TECHNIQUE: Right hip images acquired and stored on PACS. Multiplanar images to include fat sensitive sequences as T1, fluid sensitive sequences as T2/STIR and gradient echo sequences. Large FOV fat and fluid sensitive sequences include pelvis and opposite hip. LIMITATIONS: None. FINDINGS: BONE CORTEX AND MARROW: Diffuse sclerotic metastatic lesions throughout the lower lumbar s pine, bony pelvis, and right proximal femur similar compared to prior bone scan 04/19/2018. No marrow edema along the right proximal femur worrisome for radiographically occult fracture. Tiny deposit o f metastatic disease in the left femoral neck. RIGHT HIP: FEMORAL HEAD: Intact ACETABULUM: No acetabular dysplasia. No subchondral cysts. LABRUM: Intact TROCHANTER: No trochanteric bursal effusion. No edema/fluid at the insertions of the gluteus medius and gluteus minimus. LEFT HIP: Limited evaluation. No worrisome bone lesions. No significant effusion. PELVIS, LOWER LUMBAR SPINE, SACROILIAC JOINTS: PELVIS : Diffuse bony metastatic disease. SI joints unremarkable. L SPINE: Diffuse bony metastatic disease. MUSCLES AND SOFT TISSUES: Adductors and piriformis normal. Abductors and greater trochanteric bursa n ormal without edema or fluid. Iliopsoas bursa without fluid. Hamstring attachments without edema or t ear. PELVIC SOFT TISSUES: No masses or adenopathy. SCIATIC NERVE: Identified, without masses or abnormal signal. OTHER: No other significant finding. IMPRESSION: Diffuse bony metastatic disease from patient's known prostate cancer. Heavy burden of i nvolvement in the proximal right femur without marrow edema to suggest radiographically occult fractu re. TECHNICAL DOCUMENTATION: JOB ID: [id number] [employer]- All Rights Reserved Reading location - IP/workstation name: [email or web address]
--- NOTE | 2018-05-04 22:01 | RADIOLOGY REPORT (SQ) ---
EXAM DESCRIPTION: MRI LUMBAR SPINE COMBO COMPLETED DATE/TIME: 05/04/2018 11:26 am REASON FOR STUDY: LOW BACK PAIN/RAIN IN RIGHT HIP, SECONDARY MALIGNANT NEOPLASM OF BONE C79.51 SECO NDARY MALIGNANT NEOPLASM OF BONE COMPARISON: MRI right hip same date Bone scan 04/19/2018 CT chest abdomen pelvis 04/19/2018 TECHNIQUE: Sagittal and Axial imaging includes T1, T1 post gadolinium, T2, STIR and gradient echo se quences. Coronal T2/HASTE imaging. CONTRAST TYPE AND DOSE: 15 mL ProHance gadolinium RENAL FUNCTION: GFR > 60. LIMITATIONS: None. FINDINGS: VISUALIZED UPPER ABDOMEN: Limited evaluation. No acute or suspicious findings suggested. SEGMENTATION: No transitional anatomy. The lowest well-developed disc space is labeled L5-S1. ALIGNMENT: Anatomic. VERTEBRAE: Intact. No fractures. BONE MARROW: Heavy burden of disease in the lumbar spine with sclerotic metastatic lesions from patie nt's known prostate malignancy. No epidural extraosseous tumor is identified. DISC SIGNAL: Diffuse decreased T2 weighted intervertebral disc signal. POSTERIOR ELEMENTS: Generally intact. No pars defect evident. HARDWARE: None in the spine. CORD AND CONUS: Normal in size and signal intensity. Conus at the L1 level. SOFT TISSUES: No aortic aneurysm seen. No bulky retroperitoneal adenopathy or mass. No paraspinal mas s or fluid. L1-L2: No significant spinal stenosis or exit foraminal stenosis. L2-L3: Mild diffuse posterior disc bulging. Mild bilateral facet and ligament hypertrophy. Borderli ne central canal narrowing. Mild bilateral inferior foraminal narrowing without exiting L2 nerve rita t impingement. L3-L4: Mild diffuse posterior disc bulge and bony spurring is present with moderate bilateral facet a nd ligament hypertrophy. Moderate central canal narrowing with effacement of the CSF around the lumb ar nerve roots on axial T2 image 21. There is moderate right and left foraminal narrowing without de finite exiting L3 nerve root impingement. L4-L5: Broad diffuse posterior disc bulging and moderate bilateral facet and ligament hypertrophy cau se mild central canal narrowing. There is mild bilateral foraminal narrowing from facet and uncovert ebral hypertrophy without definite exiting L4 nerve root impingement. L5-S1: Minimal posterior disc bulging, mild bilateral facet and ligament hypertrophy. No significant central or foraminal stenosis LOWER THORACIC: Incompletely imaged. No stenosis seen. SACRUM: Diffuse bony metastatic involvement. ENHANCEMENT: No abnormal conus or nerve root enhancement. OTHER: No other significant findings. IMPRESSION: Diffuse bony metastatic disease. There are degenerative disc changes in the lumbar spin e with central canal stenosis most pronounced at L3-4. TECHNICAL DOCUMENTATION: JOB ID: [id number] [employer]- All Rights Reserved Reading location - IP/workstation name: [email or web address]
== END ==
LOC: RAD 09:04
PROVIDERS: ATTEND Physician Assistant Medical
DX: M25.551 Pain in right hip (principal); C79.51 Secondary malignant neoplasm of bone; M54.5 Low back pain; M51.36 Other intervertebral disc degeneration, lumbar region
CPT/HCPCS: 82565; 72158; 73723; A9576

== ENCOUNTER → 2018-08-08 | Outpatient (CLI) | payer BC ==
[2018-08-08 11:33] LABS: ABSOLUTE BASOPHILS # (AUTO) 0.1 10^3/uL (0.0-0.2); ABSOLUTE EOSINOPHILS # (AUTO) 0.2 10^3/uL (0.0-0.6); ABSOLUTE LYMPHOCYTES (AUTO) 2.1 10^3/uL (0.5-4.7); ABSOLUTE MONOCYTES (AUTO) 0.5 10^3/uL (0.1-1.4); ABSOLUTE NEUT (AUTO) 6.7 10^3/uL (1.7-8.2); BASOPHILS % (AUTO) 0.6 % (0-2); EOSINOPHILS % (AUTO) 2.3 % (0-6); HEMATOCRIT 35.6 % (37.9-51.0); HEMOGLOBIN 11.9 g/dL (13.5-17.0); LYMPHOCYTES % (AUTO) 21.8 % (13-45); MEAN CORPUSCULAR HEMOGLOBIN 30.8 pg (27.0-33.4); MEAN CORPUSCULAR HGB CONC 33.5 g/dL (32.0-36.0); MEAN CORPUSCULAR VOLUME 92 fl (80-97); MONOCYTES % (AUTO) 4.8 % (3-13); PLATELET COUNT 359 10^3/uL (150-450); RED BLOOD COUNT 3.88 10^6/uL (4.35-5.55); RED CELL DISTRIBUTION WIDTH 14.9 % (11.5-14.0); SEGMENTED NEUTROPHILS % (AUTO) 70.5 % (42-78); TOTAL CELLS COUNTED % (AUTO) 100 %; WHITE BLOOD COUNT 9.5 10^3/uL (4.0-10.5)
== END ==
LOC: OD 10:46
PROVIDERS: ATTEND Radiology Radiation Oncology
DX: C61 Malignant neoplasm of prostate (principal); R97.20 Elevated prostate specific antigen [PSA]
CPT/HCPCS: 36415; 85025

== ENCOUNTER → 2018-08-09 | Outpatient (CLI) | payer BC ==
--- NOTE | 2018-08-09 15:01 | RADIOLOGY REPORT (SQ) ---
EXAM DESCRIPTION: NM WHOLE BODY BONE SCAN COMPLETED DATE/TIME: 08/09/2018 2:44 pm REASON FOR STUDY: PROSTATE CA (C61), SECONDARY BONE CA (C79.51) C79.51 SECONDARY MALIGNANT NEOPLASM OF BONE COMPARISON: 04/19/2018 01/25/2018 RADIONUCLIDE AND DOSE: 20 millicuries Tc99m HDP. The route of agent administration: Intravenous. ADDITIONAL DRUGS AND DOSES: None. TECHNIQUE: Routine delayed images at 3 hours post radionuclide injection acquired of the bony skelet on including anterior and posterior whole-body projections and additional focused images as needed. LIMITATIONS: None. FINDINGS: BONES: Areas of abnormal uptake are seen in the calvarium, skull base, spine shoulders, an d ribs. There is a prominent area of new increased uptake in the tip of the right scapula. There is increased uptake in the left 7th rib laterally. There is new uptake in the left 9th rib. There is new uptake in the anterior superior iliac spine on the right. There is abnormal uptake in the right sacrum. KIDNEYS: Symmetric excretion without obstruction. OTHER: No other significant finding. IMPRESSION: Metastatic disease to bone with new uptake in the tip of the right scapula, right anteri or superior iliac spine, and in the left 9th rib. COMMENT: Quality measure 147: Current bone scan is compared with any available plain radiographs, p rior bone scans, and CT/MRI. TECHNICAL DOCUMENTATION: JOB ID: [id number] [employer]- All Rights Reserved Reading location - IP/workstation name: [email or web address]
== END ==
LOC: RAD 10:56
PROVIDERS: ATTEND Radiology Radiation Oncology
DX: C79.51 Secondary malignant neoplasm of bone (principal); C61 Malignant neoplasm of prostate
CPT/HCPCS: 78306; A9561; Q9969

== ENCOUNTER → 2018-08-16 | Outpatient (CLI) | payer BC | LOC: RAD 10:47 | PROVIDERS: ATTEND Radiology Radiation Oncology | DX: C61 Malignant neoplasm of prostate (principal); C79.51 Secondary malignant neoplasm of bone | CPT/HCPCS: 79101; A9606 ==

== ENCOUNTER → 2018-08-23 | Outpatient (CLI) | payer BC ==
[2018-08-23 13:53] LABS: ABSOLUTE BASOPHILS # (AUTO) 0.1 10^3/uL (0.0-0.2); ABSOLUTE EOSINOPHILS # (AUTO) 0.2 10^3/uL (0.0-0.6); ABSOLUTE LYMPHOCYTES (AUTO) 1.8 10^3/uL (0.5-4.7); ABSOLUTE MONOCYTES (AUTO) 0.5 10^3/uL (0.1-1.4); ABSOLUTE NEUT (AUTO) 5.4 10^3/uL (1.7-8.2); BASOPHILS % (AUTO) 0.7 % (0-2); EOSINOPHILS % (AUTO) 2.9 % (0-6); HEMATOCRIT 35.1 % (37.9-51.0); HEMOGLOBIN 11.8 g/dL (13.5-17.0); LYMPHOCYTES % (AUTO) 22.3 % (13-45); MEAN CORPUSCULAR HEMOGLOBIN 30.9 pg (27.0-33.4); MEAN CORPUSCULAR HGB CONC 33.7 g/dL (32.0-36.0); MEAN CORPUSCULAR VOLUME 92 fl (80-97); MONOCYTES % (AUTO) 6.6 % (3-13); PLATELET COUNT 327 10^3/uL (150-450); RED BLOOD COUNT 3.84 10^6/uL (4.35-5.55); SEGMENTED NEUTROPHILS % (AUTO) 67.5 % (42-78); TOTAL CELLS COUNTED % (AUTO) 100 %
== END ==
LOC: OD 13:24
PROVIDERS: ATTEND Radiology Radiation Oncology
DX: C61 Malignant neoplasm of prostate (principal); R97.20 Elevated prostate specific antigen [PSA]
CPT/HCPCS: 36415; 85025

== ENCOUNTER → 2018-09-05 | Outpatient (CLI) | payer BC ==
[2018-09-05 14:55] LABS: ABSOLUTE EOSINOPHILS # (AUTO) 0.2 10^3/uL (0.0-0.6); ABSOLUTE LYMPHOCYTES (AUTO) 1.6 10^3/uL (0.5-4.7); ABSOLUTE MONOCYTES (AUTO) 0.6 10^3/uL (0.1-1.4); ABSOLUTE NEUT (AUTO) 6.4 10^3/uL (1.7-8.2); BASOPHILS % (AUTO) 0.5 % (0-2); EOSINOPHILS % (AUTO) 2.3 % (0-6); HEMATOCRIT 34.8 % (37.9-51.0); HEMOGLOBIN 11.9 g/dL (13.5-17.0); LYMPHOCYTES % (AUTO) 17.6 % (13-45); MEAN CORPUSCULAR HEMOGLOBIN 31.3 pg (27.0-33.4); MEAN CORPUSCULAR HGB CONC 34.1 g/dL (32.0-36.0); MEAN CORPUSCULAR VOLUME 92 fl (80-97); MONOCYTES % (AUTO) 7.3 % (3-13); PLATELET COUNT 279 10^3/uL (150-450); RED BLOOD COUNT 3.78 10^6/uL (4.35-5.55); SEGMENTED NEUTROPHILS % (AUTO) 72.3 % (42-78); TOTAL CELLS COUNTED % (AUTO) 100 %; WHITE BLOOD COUNT 8.9 10^3/uL (4.0-10.5)
== END ==
LOC: OD 14:27
PROVIDERS: ATTEND Radiology Radiation Oncology
DX: C61 Malignant neoplasm of prostate (principal); R97.20 Elevated prostate specific antigen [PSA]
CPT/HCPCS: 36415; 85025

== ENCOUNTER → 2018-09-12 | Outpatient (CLI) | payer BC | LOC: RAD 11:48 | PROVIDERS: ATTEND Radiology Radiation Oncology | DX: C79.51 Secondary malignant neoplasm of bone (principal); C61 Malignant neoplasm of prostate | CPT/HCPCS: 79101; A9606 ==

== ENCOUNTER → 2018-10-03 | Outpatient (CLI) | payer BC ==
[2018-10-03 11:05] LABS: ABSOLUTE EOSINOPHILS # (AUTO) 0.2 10^3/uL (0.0-0.6); ABSOLUTE LYMPHOCYTES (AUTO) 1.3 10^3/uL (0.5-4.7); ABSOLUTE MONOCYTES (AUTO) 0.6 10^3/uL (0.1-1.4); BASOPHILS % (AUTO) 0.4 % (0-2); EOSINOPHILS % (AUTO) 2.8 % (0-6); HEMOGLOBIN 11.8 g/dL (13.5-17.0); LYMPHOCYTES % (AUTO) 16.1 % (13-45); MEAN CORPUSCULAR HGB CONC 33.8 g/dL (32.0-36.0); MEAN CORPUSCULAR VOLUME 92 fl (80-97); MONOCYTES % (AUTO) 7.2 % (3-13); PLATELET COUNT 256 10^3/uL (150-450); RED BLOOD COUNT 3.82 10^6/uL (4.35-5.55); RED CELL DISTRIBUTION WIDTH 14.9 % (11.5-14.0); SEGMENTED NEUTROPHILS % (AUTO) 73.5 % (42-78); TOTAL CELLS COUNTED % (AUTO) 100 %; WHITE BLOOD COUNT 8.1 10^3/uL (4.0-10.5)
== END ==
LOC: OD 10:15
PROVIDERS: ATTEND Radiology Radiation Oncology
DX: C61 Malignant neoplasm of prostate (principal); R97.20 Elevated prostate specific antigen [PSA]
CPT/HCPCS: 36415; 85025

== ENCOUNTER → 2018-10-07 | Outpatient (CLI) | payer BC ==
--- NOTE | 2018-10-07 09:38 | RADIOLOGY REPORT (SQ) ---
EXAM DESCRIPTION: U/S EXTREMITY NONVASCULAR COMP COMPLETED DATE/TIME: 10/07/2018 9:09 am REASON FOR STUDY: PROSTATE CA C61 MALIGNANT NEOPLASM OF PROSTATE COMPARISON: Whole-body bone scan 08/09/2018 CT angio chest 06/18/2018 CT abdomen pelvis 04/19/2018 MRI lumbar spine 05/04/2018 TECHNIQUE: Static and real time zamora scale ultrasound Doppler spectral analysis, and color Doppler a cquired along the palpable abnormalities left periscapular and right anterior thigh LIMITATIONS: None. FINDINGS: Palpable abnormality left periscapular region was evaluated. There is asymmetric thickeni ng of the right supraspinatus muscle as compared to the left. Soft tissue metastatic disease may be present. Palpable mass measures about 3.8 x 3.7 x 1.3 cm. In the anterior right side, palpable abnormality is present. There is a soft tissue mass in the uppe r aspect of the quadriceps muscles, measuring 5 x 4 x 3 cm in size worrisome for soft tissue metastat ic disease. IMPRESSION: Findings worrisome for soft tissue metastatic disease. TECHNICAL DOCUMENTATION: JOB ID: [id number] [employer]- All Rights Reserved Reading location - IP/workstation name: [facility]-[email or web address]
== END ==
LOC: RAD 08:36
PROVIDERS: ATTEND Internal Medicine
DX: C61 Malignant neoplasm of prostate (principal); C79.89 Secondary malignant neoplasm of other specified sites
CPT/HCPCS: 76881

== ENCOUNTER 2018-10-14 07:37 | Day surgery (SDC) | payer BC ==
[2018-10-14 08:14] LABS: HEMATOCRIT 33.4 % (37.9-51.0); HEMOGLOBIN 11.4 g/dL (13.5-17.0); MEAN CORPUSCULAR HGB CONC 34.1 g/dL (32.0-36.0); MEAN CORPUSCULAR VOLUME 91 fl (80-97); PLATELET COUNT 270 10^3/uL (150-450); RED BLOOD COUNT 3.68 10^6/uL (4.35-5.55); RED CELL DISTRIBUTION WIDTH 14.7 % (11.5-14.0); WHITE BLOOD COUNT 7.9 10^3/uL (4.0-10.5)
[2018-10-14 08:18] LABS: INTERNATIONAL RATION (INR) 0.95; PROTHROMBIN TIME 13.2 SEC (11.4-15.4)
[2018-10-14 08:19] LABS: PARTIAL THROMBOPLASTIN TIME 35.9 SEC (23.5-35.8)
[2018-10-14 08:34] LABS: BLOOD UREA NITROGEN 19 mg/dL (7-20)
[2018-10-14] MEDS ORDERED: MIDAZOLAM 2 MG/2 ML INJ ONE (10:09)
[2018-10-14] MEDS ORDERED: FENTANYL CITRATE INJ/PF 100 MCG/2 ML AMPUL ONE (10:09)
[2018-10-14] MEDS ORDERED: LIDOCAINE 1% INJ-PF (10 MG/ML) 30 ML SDV ONE (10:09)
[2018-10-14 13:06] VITALS: BP 100/63
--- NOTE | 2018-10-14 13:17 | RADIOLOGY REPORT (SQ) ---
EXAM DESCRIPTION: U/S BIOPSY MUSCLE COMPLETED DATE/TIME: 10/14/2018 11:11 am REASON FOR STUDY: PROSTATE CANCER COMPARISON Soft tissue ultrasound 10/07/2018 LIMITATIONS: None. PROCEDURE: After obtaining informed consent, the patient was brought to the ultrasound suite. The p rocedure was performed with the patient on a gurney. Ultrasound was used to identify the soft tissue mass in the quadriceps muscle left thigh. An appropr iate access site was selected. At my direction, with continuous physiologic monitoring by radiology nursing personnel, conscious sed ation was achieved with 1 mg of Versed and 100 mcg of fentanyl without complication. Time monitoring the patient, 35 minutes. [id number] biopsy time, 15 minutes. The patient was prepped and draped in usual sterile fashion. The access site was anesthetized with 3.5 mL 1% lidocaine. A coaxial 18 gauge needle was advanced into the left thigh soft tissue mass. A fter 3 core biopsies of the left thigh mass, needle was withdrawn. Specimens of the mass were submit brian to the lab in formalin. No immediate post procedure complications. Pathology is pending at the time of dictation. The patient tolerated the procedure well left the dep artment in satisfactory condition. IMPRESSION: Successful ultrasound-guided biopsy left thigh mass with IV conscious sedation. Patholo gy is pending COMMENT: Patient medication list reviewed: Yes- Quality ID# 130:Eligible professional attests to doc umenting in the medical record they obtained, updated, or reviewed the patient's current medications. TECHNICAL DOCUMENTATION: JOB ID: [id number] [employer]- All Rights Reserved Reading location - IP/workstation name: [facility]-RR
== END 2018-10-14 12:50 | disposition home or self-care (01) ==
LOC: RAD 07:37
PROVIDERS: ATTEND Internal Medicine
DX: R22.42 Localized swelling, mass and lump, left lower limb (principal); C61 Malignant neoplasm of prostate
CPT/HCPCS: 36415; 84520; 82565; 85027; 85610; 85730; 88304 ×2; 20206; J2250; J3010; J3490

== ENCOUNTER 2018-10-30 08:58 | Day surgery (SDC) | payer BC ==
[2018-10-30 10:30] LABS: HEMATOCRIT 31.6 % (37.9-51.0); HEMOGLOBIN 10.8 g/dL (13.5-17.0); MEAN CORPUSCULAR HEMOGLOBIN 30.7 pg (27.0-33.4); MEAN CORPUSCULAR HGB CONC 34.3 g/dL (32.0-36.0); MEAN CORPUSCULAR VOLUME 90 fl (80-97); PLATELET COUNT 232 10^3/uL (150-450); RED BLOOD COUNT 3.53 10^6/uL (4.35-5.55); RED CELL DISTRIBUTION WIDTH 14.5 % (11.5-14.0); WHITE BLOOD COUNT 5.2 10^3/uL (4.0-10.5)
[2018-10-30 10:36] LABS: PROTHROMBIN TIME 13.7 SEC (11.4-15.4)
[2018-10-30 10:37] LABS: PARTIAL THROMBOPLASTIN TIME 35.1 SEC (23.5-35.8)
[2018-10-30 10:49] LABS: BLOOD UREA NITROGEN 14 mg/dL (7-20)
[2018-10-30] MEDS ORDERED: MIDAZOLAM 2 MG/2 ML INJ ONE (11:08)
[2018-10-30] MEDS ORDERED: LIDOCAINE 1% INJ-PF (10 MG/ML) 30 ML SDV ONE (11:08)
[2018-10-30] MEDS ORDERED: FENTANYL CITRATE INJ/PF 100 MCG/2 ML AMPUL ONE (11:08)
--- NOTE | 2018-10-30 12:34 | RADIOLOGY REPORT (SQ) ---
EXAM DESCRIPTION: CT RT LOWER EXTREMITY WITHOUT COMPLETED DATE/TIME: 10/30/2018 11:55 am REASON FOR STUDY: RIGHT HIP MASS R22.41 LOCALIZED SWELLING, MASS AND LUMP, RIGHT LOWER LIMB COMPARISON: Ultrasound soft tissues 10/07/2018 Left thigh ultrasound-guided core biopsy 10/14/2018 CT chest 04/19/2018 TECHNIQUE: CT scan of the left thigh and bilateral shoulders performed without intravenous or oral c ontrast. Images reviewed with soft tissue and bone windows. Reconstructed coronal and sagittal MPR images reviewed. All images stored on PACS. All CT scanners at this facility use dose modulation, iterative reconstruction, and/or weight based d osing when appropriate to reduce radiation dose to as low as reasonably achievable (ALARA). [facility]: Dose Right [facility]: CareDose [facility]: Dose Right [facility]: Teradose 4D [facility]: [employer] RADIATION DOSE: CT Rad equipment meets quality standard of care and radiation dose reduction techniq ues were employed. CTDIvol: 4.8 - 10.2 mGy. DLP: 377 mGy-cm. mGy. LIMITATIONS: None. FINDINGS: Patient underwent a biopsy of the mass in the left thigh on 10/14/2018 yielding a diagnosis of benign appearing fat. Patient was placed on the CT table today for CT-guided biopsy of the palpable thigh mass. Pre biopsy scanning with markers over the skin demonstrate a 4.5 by 4 cm lipoma in the vastus medialis muscle. This has benign features, measures negative Hounsfield units in density and requires no further inte rvention. Because of the palpable mass over the left shoulder, CT was performed to correlate with prior ultraso und 10/07/2018. In the posterior left back, along the periscapular region a 4 x 2.5 cm lipoma is prese nt. Within the left deltoid muscle, a 1.6 x 1 cm lipoma is present. These are unchanged from 018. Diffuse bony sclerotic metastatic lesions from patient's known prostate cancer. IMPRESSION: Benign appearing lipoma is in the left thigh, left deltoid muscle, and left shoulder per iscapular soft tissues. No biopsy was performed today. TECHNICAL DOCUMENTATION: JOB ID: [id number] Quality ID # 436: Final reports with documentation of one or more dose reduction techniques (e.g., Au tomated exposure control, adjustment of the mA and/or kV according to patient size, use of iterative reconstruction technique) 2010 [employer]- All Rights Reserved Reading location - IP/workstation name: [email or web address]
[2018-10-30 13:48] VITALS: BP 135/84
== END 2018-10-30 12:10 | disposition home or self-care (01) ==
LOC: RAD 08:58
PROVIDERS: ATTEND Internal Medicine
DX: C61 Malignant neoplasm of prostate (principal); R22.41 Localized swelling, mass and lump, right lower limb; Z53.9 Procedure and treatment not carried out, unspecified reason; Z79.899 Other long term (current) drug therapy; Z79.891 Long term (current) use of opiate analgesic
CPT/HCPCS: 36415; 84520; 82565; 85027; 85610; 85730; 73700; J3010; J3490; J2250

== ENCOUNTER 2018-12-03 09:15 | Outpatient (CLI) | payer BC ==
[2018-12-03] MEDS ORDERED: ONDANSETRON HCL/PF 4 MG in NORMAL SALINE 50 ML IV PRN (09:25)
[2018-12-03] MEDS ORDERED: HYDROMORPHONE HCL INJ/PF 2 MG/ML AMPULE IV PRN (09:27)
[2018-12-03] MEDS ORDERED: NORMAL SALINE 1000 ML 1,000 ML IV PRN (09:28)
[2018-12-03 09:57] VITALS: BP 111/73
== END 2018-12-03 11:13 | disposition home or self-care (01) ==
LOC: II 09:15 → 5TH 10:24 → II 11:13
PROVIDERS: ATTEND Internal Medicine
DX: C61 Malignant neoplasm of prostate (principal); R11.0 Nausea; E86.0 Dehydration; G89.3 Neoplasm related pain (acute) (chronic)
CPT/HCPCS: 96365; 96374; 96360; J1170; J2405

== ENCOUNTER 2018-12-04 12:51 | Outpatient (CLI) | payer BC ==
[2018-12-04] MEDS ORDERED: ONDANSETRON HCL/PF 4 MG in NORMAL SALINE 50 ML IV PRN (13:08)
[2018-12-04] MEDS ORDERED: NORMAL SALINE 1000 ML 1,000 ML IV PRN (13:09)
[2018-12-04] MEDS ORDERED: HYDROMORPHONE HCL INJ/PF 2 MG/ML AMPULE IV PRN (13:10)
[2018-12-04 13:39] VITALS: BP 110/60
== END 2018-12-04 14:42 | disposition home or self-care (01) ==
LOC: II 12:51 → 5TH 13:01 → II 14:42
PROVIDERS: ATTEND Internal Medicine
PROC: 3E043GC Introduction of Other Therapeutic Substance into Central Vein, Percutaneous Approach (ICD-10-PCS; principal; 2018-12-04)
PROC: 3E0437Z Introduction of Electrolytic and Water Balance Substance into Central Vein, Percutaneous Approach (ICD-10-PCS; 2018-12-04)
DX: R11.0 Nausea (principal); C61 Malignant neoplasm of prostate; E86.0 Dehydration; G89.3 Neoplasm related pain (acute) (chronic)
CPT/HCPCS: 96365; 96374; 96360; J1170; J2405; 96361; 96375

== ENCOUNTER → 2019-01-01 | Outpatient (CLI) | payer BC ==
--- NOTE | 2019-01-01 12:35 | RADIOLOGY REPORT (SQ) ---
EXAM DESCRIPTION: CT CHEST WITH COMPLETED DATE/TIME: 01/01/2019 9:29 am REASON FOR STUDY: C61 MALIGNANT NEOPLASM OF PROSTATE C61 MALIGNANT NEOPLASM OF PROSTATE COMPARISON: 06/18/2018 TECHNIQUE: CT scan of the chest performed using helical scanning technique with dynamic intravenous contrast injection. Images reviewed with lung, soft tissue and bone windows. Reconstructed coronal and sagittal MPR and MIP images reviewed. All images stored on PACS. All CT scanners at this facility use dose modulation, iterative reconstruction, and/or weight based d osing when appropriate to reduce radiation dose to as low as reasonably achievable (ALARA). [facility]: Dose Right [facility]: CareDose [facility]: Dose Right [facility]: Teradose 4D [facility]: [employer] CONTRAST TYPE AND DOSE: contrast/concentration: Isovue 350.00 mg/ml; Total Contrast Delivered: 67.0 ml; Total Saline Delivered: 35.6 ml RENAL FUNCTION: BUN 12, creatinine 0.5 RADIATION DOSE: CT Rad equipment meets quality standard of care and radiation dose reduction techniq ues were employed. CTDIvol: 5.2 - 6.8 mGy. DLP: 1096 mGy-cm. . LIMITATIONS: None. FINDINGS: LUNGS AND PLEURA: No opacities, nodules, masses. No pneumothorax. No effusions. HILAR AND MEDIASTINAL STRUCTURES: No identified masses or abnormal nodes. HEART AND VASCULAR STRUCTURES: No aneurysm or dissection. No central pulmonary emboli. No pericardi al effusion. HARDWARE: Left-sided chest port with catheter tip at SVC. UPPER ABDOMEN: See separate report of the CT of the abdomen. THYROID AND OTHER SOFT TISSUES: No masses. No adenopathy. BONES: Innumerable sclerotic deposits, stable. No new lesions. OTHER: No other significant finding. IMPRESSION: Stable diffuse sclerotic osseous disease. No new lesions. No additional evidence of intrathoracic disease or other acute intrathoracic process. See separate report of the CT of the abdomen. TECHNICAL DOCUMENTATION: JOB ID: [id number] Quality ID # 436: Final reports with documentation of one or more dose reduction techniques (e.g., Au tomated exposure control, adjustment of the mA and/or kV according to patient size, use of iterative reconstruction technique) 2010 [employer]- All Rights Reserved Reading location - IP/workstation name: [email or web address]
--- NOTE | 2019-01-01 12:58 | RADIOLOGY REPORT (SQ) ---
EXAM DESCRIPTION: CT ABD/PELVIS WITH IV ONLY COMPLETED DATE/TIME: 01/01/2019 9:29 am REASON FOR STUDY: C61 MALIGNANT NEOPLASM OF PROSTATE C61 MALIGNANT NEOPLASM OF PROSTATE COMPARISON: 04/19/2018 TECHNIQUE: CT scan of the abdomen and pelvis performed using helical scanning technique with dynamic intravenous contrast injection. No oral contrast. Images reviewed with lung, soft tissue, and bone windows. Reconstructed coronal and sagittal MPR images reviewed. Delayed images for evaluation of the urinary system also acquired. All images stored on PACS. All CT scanners at this facility use dose modulation, iterative reconstruction, and/or weight based d osing when appropriate to reduce radiation dose to as low as reasonably achievable (ALARA). [facility]: Dose Right [facility]: CareDose [facility]: Dose Right [facility]: Teradose 4D [facility]: [employer] CONTRAST TYPE AND DOSE: See chest CT RENAL FUNCTION: BUN 12, creatinine 0.5 RADIATION DOSE: . LIMITATIONS: None. FINDINGS: LOWER CHEST: See separate report of the CT of the chest. LIVER: There are multiple new ill-defined hypodense hepatic lesions, largest involving the right hepa tic lobe and segment 4 measuring approximately 11.1 x 7.0 cm (series 3, image 63). There is associat ed mass effect with poor visualization of the middle portal vein compared to prior. Serpiginous area s of hypoattenuation within the segment 8 suspicious for local intrahepatic ductal dilate. SPLEEN: Normal size. No focal lesions. PANCREAS: No masses. No significant calcifications. No adjacent inflammation or peripancreatic fluid collections. Pancreatic duct not dilated. GALLBLADDER: No identified stones by CT criteria. No inflammatory changes to suggest cholecystitis. ADRENAL GLANDS: No significant masses or asymmetry. RIGHT KIDNEY AND URETER: No solid masses. No significant calcifications. No hydronephrosis or hyd roureter. LEFT KIDNEY AND URETER: No solid masses. No significant calcifications. No hydronephrosis or hydr oureter. AORTA AND VESSELS: Scattered aortoiliac atherosclerosis. No aneurysm. Patent celiac, SMA, bilateral renals and TIFFANI origin. RETROPERITONEUM: No retroperitoneal adenopathy, hemorrhage or masses. BOWEL AND PERITONEAL CAVITY: No evidence of intestinal obstruction. Mild mesenteric stranding and en gorgement. Trace perihepatic ascites. Moderate fecal burden throughout the visualized colon. No fo nelly bowel wall thickening. APPENDIX: Surgically absent. PELVIS: Trace pelvic ascites. ABDOMINAL WALL: No masses. No hernias. BONES: Diffuse sclerotic osseous disease, stable. No new bony abnormality. OTHER: No other significant finding. IMPRESSION: 1. Multiple new ill-defined hypodense hepatic lesions, largest involving the right hepa tic lobe and segment 4 measuring approximately 11.1 x 7.0 cm. There is associated mass effect with c ompression of the middle portal vein and questionable local intrahepatic biliary ductal dilation in s egment 8. Findings most compatible with metastatic disease. 2. Stable diffuse osseous sclerotic disease. 3. Moderate fecal burden throughout the ascending colon. Findings discussed with Dr. Cho at the time of interpretation. TECHNICAL DOCUMENTATION: JOB ID: [id number] Quality ID # [id number]: Final reports with documentation of one or more dose reduction techniques (e.g., Au tomated exposure control, adjustment of the mA and/or kV according to patient size, use of iterative reconstruction technique) 2010 [employer]- All Rights Reserved Reading location - IP/workstation name: [email or web address]
--- NOTE | 2019-01-01 14:45 | RADIOLOGY REPORT (SQ) ---
EXAM DESCRIPTION: NM WHOLE BODY BONE SCAN COMPLETED DATE/TIME: 01/01/2019 12:53 pm REASON FOR STUDY: C61 MALIGNANT NEOPLASM OF PROSTATE C61 MALIGNANT NEOPLASM OF PROSTATE COMPARISON: 08/09/2018 RADIONUCLIDE AND DOSE: 21.2 millicuries Tc99m MDP. The route of agent administration: Intravenous. ADDITIONAL DRUGS AND DOSES: None. TECHNIQUE: Routine delayed images at 3 hour post radionuclide injection acquired of the bony skeleto n including anterior and posterior whole-body projections and additional focused images as needed. LIMITATIONS: None. FINDINGS: BONES: Multiple areas of abnormal increased uptake in the axial and appendicular skeleton. Skull, ribs, right scapula, pelvis. No significant change since the prior. KIDNEYS: Symmetric excretion without obstruction. OTHER: No other significant finding. IMPRESSION: Stable bone metastasis. COMMENT: Quality measure 147: Current bone scan is compared with any available plain radiographs, p rior bone scans, and CT/MRI. TECHNICAL DOCUMENTATION: JOB ID: [id number] [employer]- All Rights Reserved Reading location - IP/workstation name: [email or web address]
== END ==
LOC: RAD 08:44
PROVIDERS: ATTEND Internal Medicine
DX: C61 Malignant neoplasm of prostate (principal); C79.51 Secondary malignant neoplasm of bone
CPT/HCPCS: 78306; 71260; 74177; A9561; Q9969

== ENCOUNTER 2019-01-03 15:52 | Inpatient (IN) | payer BC ==
--- NOTE | 2019-01-03 16:36 | ER Document Report ---
ED General - General Chief Complaint: Abnormal Lab Results Stated Complaint: ABNORMAL LABS Time Seen by Provider: 01/03/19 16:10 Notes: This is a 53-year-old male to emergency department chief complaint of low blood counts. Patient followed by Dr. Leggett with oncology. Has metastatic prostate cancer. Blood counts were 5 and 15. Increased weakness. Recent CT scan shows large amount of tumor in the liver. Multiple bone metastasis. Some pain in the left lower quadrant with constipation. TRAVEL OUTSIDE OF THE [place] IN LAST 30 DAYS: No - HPI Quality of pain: Achy, Dull Severity: Moderate Pain Level: 3 Associated symptoms: Shortness of breath Exacerbated by: Movement - Related Data Allergies/Adverse Reactions: Sulfa (Sulfonamide Antibiotics) Allergy (Severe, Verified 01/03/19 16:45) hot and burning Past Medical History - General Information source: Patient, Relative, Dr. Cruz, [facility] Records - Social History Smoking Status: Former Smoker Frequency of alcohol use: None Drug Abuse: None Lives with: Spouse/Significant other Family History: Reviewed & Not Pertinent - Past Medical History Cardiac Medical History: Reports: Hx Hypertension - on meds Denies: Hx Coronary Artery Disease, Hx Heart Attack Pulmonary Medical History: Reports: Hx Bronchitis, Hx COPD Denies: Hx Asthma, Hx Pneumonia Neurological Medical History: Denies: Hx Cerebrovascular Accident, Hx Seizures Renal/ Medical History: Denies: Hx Peritoneal Dialysis Malignancy Medical History: Reports Hx Prostate Cancer - With diffuse jeff metastases Musculoskeletal Medical History: Reports Hx Arthritis Past Surgical History: Reports: Hx Appendectomy, Hx Orthopedic Surgery - L carpal tunnel - Immunizations Hx Diphtheria, Pertussis, Tetanus Vaccination: No Review of Systems - Review of Systems Notes: Constitutional: denies: Chills, Diaphoresis, Fever, Malaise, +Weakness EENT: denies: Eye discharge, Blurred vision, Tearing, Double vision, Nose conges tion, Nose discharge, Throat swelling, Mouth pain Cardiovascular: denies: Palpitations, Heart racing, Orthopnea, Dyspnea, Chest pain Respiratory: denies: Cough, Hurts to breathe, Wheezing, Shortness of breath Gastrointestinal: denies: Diarrhea, Nausea, Vomiting, Black stools, bright red blood in stool. Abdominal pain Genitourinary: denies: Burning, Dysuria, Discharge, Frequency, Flank pain, H ematuria Musculoskeletal: denies: Joint pain, Joint swelling, Muscle pain, Muscle stiffness, back pain Hematologic/Lymphatic: denies: Anemia, Easy bleeding, Easy bruising, Blood clots. History of metastatic prostate cancer. Neurological/Psychological: denies: Confusion, Dementia, Depression, Loss of consciousness Skin: No lesions, no masses, no skin breakdown, no abscesses Physical Exam - Vital signs Vitals: Resp Pulse Ox 11 L 91 L 01/03/19 16:12 01/03/19 16:12 Interpretation: Normal - General General appearance: Alert. No: Appears well - Ill-appearing - HEENT Head: Normocephalic, Atraumatic Eyes: Normal Conjunctiva: Icteric Pupils: PERRL - Respiratory Respiratory status: No respiratory distress Chest status: Nontender Breath sounds: Normal Chest palpation: Normal - Cardiovascular Rhythm: Regular Heart sounds: Normal auscultation Murmur: No - Abdominal Inspection: Normal Distension: No distension Bowel sounds: Normal Tenderness: Tender - Left lower quadrant mild tenderness to palpation. Organomegaly: No organomegaly - Back Back: Normal, Nontender - Extremities General upper extremity: Normal inspection, Nontender, Normal color, Normal ROM, Normal temperature General lower extremity: Normal inspection, Nontender, Edema, Normal color, Normal ROM, Normal temperature, Normal weight bearing. No: Muriel's sign - Neurological Neuro grossly intact: Yes Cognition: Normal Orientation: AAOx4 Tung Coma Scale Eye Opening: Spontaneous Tung Coma Scale Verbal: Oriented Tung Coma Scale Motor: Obeys Commands Murdo Coma Scale Total: 15 Speech: Normal Motor strength normal: LUE, RUE, LLE, RLE Sensory: Normal - Psychological Associated symptoms: Normal affect, Normal mood - Skin Skin Temperature: Warm Skin Moisture: Dry Skin Color: Pale Course - Re-evaluation Re-evalutation: 01/03/19 19:01 Long discussion had with patient's oncologist. Will admit at this time for blood work, transfusion and pain control. 01/03/19 19:02 Laboratory 01/03/19 01/03/19 01/03/19 16:15 16:15 16:15 WBC 5.9 RBC 1.91 L Hgb 5.7 L Hct 16.5 L MCV 86 MCH 29.6 MCHC 34.3 RDW 17.0 H Plt Count 25 L* Total Counted 100 Seg Neutrophils % Not Reportable Seg Neuts % (Manual) 62 Band Neutrophils % 8 H Lymphocytes % Not Reportable Lymphocytes % (Manual) 20 Monocytes % Not Reportable Monocytes % (Manual) 5 Eosinophils % Not Reportable Eosinophils % (Manual) 0 Basophils % Not Reportable Basophils % (Manual) 0 Metamyelocytes % 3 H Myelocytes % 1 H Promyelocytes % 1 H Absolute Neutrophils Not Reportable Abs Neuts (Manual) 4.4 Absolute Lymphocytes Not Reportable Abs Lymphs (Manual) 1.2 Absolute Monocytes Not Reportable Abs Monocytes (Manual) 0.3 Absolute Eosinophils Not Reportable Absolute Eos (Manual) 0.0 Absolute Basophils Not Reportable Abs Basophils (Manual) 0.0 Nucleated RBCs 1 Platelet Comment DECREASED Polychromasia SLIGHT Hypochromasia 1+ Anisocytosis 2+ Microcytosis 1+ Tear Drop Cells 1+ PT 15.2 INR 1.14 APTT 58.0 H Sodium 137.4 Potassium 3.8 Chloride 98 Carbon Dioxide 31 H Anion Gap 8 BUN 32 H Creatinine 0.73 Est GFR ( Amer) > 60 Est GFR (Non-Af Amer) > 60 Glucose 105 Calcium 9.6 Total Bilirubin 3.3 H Direct Bilirubin 2.4 H Neonat Total Bilirubin Not Reportable Neonat Direct Bilirubin Not Reportable Neonat Indirect Bili Not Reportable AST 212 H ALT 50 Alkaline Phosphatase 527 H Total Protein 5.9 L Albumin 2.8 L Lipase 16.0 L Blood Type Antibody Screen Crossmatch 01/03/19 16:15 WBC RBC Hgb Hct MCV MCH MCHC RDW Plt Count Total Counted Seg Neutrophils % Seg Neuts % (Manual) Band Neutrophils % Lymphocytes % Lymphocytes % (Manual) Monocytes % Monocytes % (Manual) Eosinophils % Eosinophils % (Manual) Basophils % Basophils % (Manual) Metamyelocytes % Myelocytes % Promyelocytes % Absolute Neutrophils Abs Neuts (Manual) Absolute Lymphocytes Abs Lymphs (Manual) Absolute Monocytes Abs Monocytes (Manual) Absolute Eosinophils Absolute Eos (Manual) Absolute Basophils Abs Basophils (Manual) Nucleated RBCs Platelet Comment Polychromasia Hypochromasia Anisocytosis Microcytosis Tear Drop Cells PT INR APTT Sodium Potassium Chloride Carbon Dioxide Anion Gap BUN Creatinine Est GFR ( Amer) Est GFR (Non-Af Amer) Glucose Calcium Total Bilirubin Direct Bilirubin Neonat Total Bilirubin Neonat Direct Bilirubin Neonat Indirect Bili AST ALT Alkaline Phosphatase Total Protein Albumin Lipase Blood Type O NEGATIVE Antibody Screen NEGATIVE Crossmatch See Detail - Vital Signs Vital signs: Temp Pulse Resp BP Pulse Ox 13 148/80 H 99 01/03/19 17:01 01/03/19 17:01 01/03/19 17:01 - Laboratory Result Diagrams: 01/03/19 16:15 01/03/19 16:15 Laboratory results interpreted by me: 01/03/19 01/03/19 01/03/19 16:15 16:15 16:15 RBC 1.91 L Hgb 5.7 L Hct 16.5 L RDW 17.0 H Plt Count 25 L* Band Neutrophils % 8 H Metamyelocytes % 3 H Myelocytes % 1 H Promyelocytes % 1 H APTT 58.0 H Carbon Dioxide 31 H BUN 32 H Total Bilirubin 3.3 H Direct Bilirubin 2.4 H AST 212 H Alkaline Phosphatase 527 H Total Protein 5.9 L Albumin 2.8 L Lipase 16.0 L Crossmatch 01/03/19 16:15 RBC Hgb Hct RDW Plt Count Band Neutrophils % Metamyelocytes % Myelocytes % Promyelocytes % APTT Carbon Dioxide BUN Total Bilirubin Direct Bilirubin AST Alkaline Phosphatase Total Protein Albumin Lipase Crossmatch See Detail Critical Care Note - Critical Care Note Total time excluding time spent on procedures (mins): 45 Comments: Tachycardia, severe anemia, consultation with specialist Discharge - Discharge Clinical Impression: Signs and symptoms of anemia, Metastatic malignant neoplasm to prostate Condition: Fair Disposition: ADMITTED INPATIENT Admitting Provider: Pinky (Hospitalist) Unit Admitted: [facility]
[2019-01-03] MEDS ORDERED: NORMAL SALINE 250 ML IV PRN ×2 (16:51→16:58)
[2019-01-03] MEDS ORDERED: HYDROMORPHONE HCL INJ/PF 2 MG/ML AMPULE IV ONE (16:51)
[2019-01-03] MEDS ORDERED: NORMAL SALINE 500 ML IV ONE (16:52)
[2019-01-03 17:02] LABS: INTERNATIONAL RATION (INR) 1.14; PROTHROMBIN TIME 15.2 SEC (11.4-15.4)
[2019-01-03 17:12] LABS: HEMATOCRIT 16.5 % (37.9-51.0); MEAN CORPUSCULAR HEMOGLOBIN 29.6 pg (27.0-33.4); MEAN CORPUSCULAR HGB CONC 34.3 g/dL (32.0-36.0); MEAN CORPUSCULAR VOLUME 86 fl (80-97); RED BLOOD COUNT 1.91 10^6/uL (4.35-5.55); WHITE BLOOD COUNT 5.9 10^3/uL (4.0-10.5)
[2019-01-03 17:13] LABS: ALANINE AMINOTRANSFERASE 50 U/L (21-72); ALBUMIN 2.8 g/dL (3.5-5.0); ALKALINE PHOSPHATASE 527 U/L (38-126); ANION GAP 8 (5-19); ASPARTATE AMINO TRANSFERASE 212 U/L (17-59); BILIRUBIN,DIRECT 2.4 mg/dL (0.0-0.4); BILIRUBIN,TOTAL 3.3 mg/dL (0.2-1.3); BLOOD UREA NITROGEN 32 mg/dL (7-20); CALCIUM 9.6 mg/dL (8.4-10.2); CARBON DIOXIDE 31 mmol/L (22-30); CHLORIDE 98 mmol/L (98-107); GLUCOSE 105 mg/dL (75-110); POTASSIUM 3.8 mmol/L (3.6-5.0); SODIUM 137.4 mmol/L (137-145); TOTAL PROTEIN 5.9 g/dL (6.3-8.2)
[2019-01-03 17:29] LABS: HEMOGLOBIN 5.7 g/dL (13.5-17.0); PLATELET COUNT 25 10^3/uL (150-450)
[2019-01-03 17:39] LABS: ABSOLUTE LYMPHOCYTES# (MANUAL) 1.2 10^3/uL (0.5-4.7); ABSOLUTE MONOCYTES # (MANUAL) 0.3 10^3/uL (0.1-1.4); ABSOLUTE NEUTROPHILS# (MANUAL) 4.4 10^3/uL (1.7-8.2); BAND NEUTROPHILS % (MANUAL) 8 % (3-5); BASOPHILS % (MANUAL) 0 % (0-2); EOSINOPHILS % (MANUAL) 0 % (0-6); LYMPHOCYTES % (MANUAL) 20 % (13-45); MONOCYTES % (MANUAL) 5 % (3-13); NUCLEATED RED BLOOD CELLS 1 /100 WBC (0); SEGMENTED NEUTROPHILS % (MAN) 62 % (42-78); TOTAL CELLS COUNTED 100
[2019-01-03 17:41] LABS: PLATELET COMMENT DECREASED
[2019-01-03 17:43] LABS: ANISOCYTOSIS 2+; HYPOCHROMASIA 1+; POLYCHROMASIA SLIGHT; TEAR DROP CELLS 1+
[2019-01-03 17:44] LABS: METAMYELOCYTES % (MANUAL) 3 % (0); MYELOCYTES % (MANUAL) 1 % (0); PROMYELOCYTES % (MANUAL) 1 % (0)
[2019-01-03] MEDS ORDERED: ONDANSETRON HCL INJ/PF 4 MG/2 ML SDV IV PRN (18:14)
[2019-01-03] MEDS ORDERED: MAG HYDROX/AL HYDROX/SIMETH SUSP 30 ML UDCUP PO PRN (18:14)
[2019-01-03] MEDS ORDERED: ONDANSETRON 4 MG TAB.RAPDIS PO PRN (18:14)
[2019-01-03] MEDS ORDERED: OXYCODONE HCL IR 5 MG TABLET PO PRN (18:20)
[2019-01-03] MEDS ORDERED: HYDROMORPHONE HCL INJ/PF 2 MG/ML AMPULE IV PRN (18:23)
[2019-01-03] MEDS ORDERED: DOCUSATE SODIUM 100 MG CAPSULE PO PRN (18:28)
[2019-01-03] MEDS ORDERED: BISACODYL 5 MG TABEC PO PRN (18:29)
[2019-01-03] MEDS ORDERED: BISACODYL 10 MG SUPP.RECT PR PRN (18:29)
--- NOTE | 2019-01-03 19:09 | PDOC H&P ---
History of Present Illness Admission Date/PCP: 01/03/19 17:14 JAMEE MOYA MD Patient complains of: Severe anemia and thrombocytopenia History of Present Illness: MORTEZA MAN is a 53 year old male with diffusely metastatic prostate cancer including multiple liver lesions the largest of which measures 11 x 7 cm as well as multiple bony metastases including the skull, ribs, right scapula and pelvis. The patient has severe chronic pain. He had a follow-up appointment with his oncologist to review the imaging studies. Blood work found that his hemoglobin was less than 6.0. His platelet count was also low. The patient was referred to the hospitalist service for admission to transfuse and help with pain management. Past Medical History Cardiac Medical History: Reports: Hypertension - on meds Denies: Coronary Artery Disease, Myocardial Infarction Pulmonary Medical History: Reports: Bronchitis, Chronic Obstructive Pulmonary Disease (COPD) Denies: Asthma, Pneumonia Neurological Medical History: Denies: Hemorrhagic CVA, Ischemic CVA, Seizures Endocrine Medical History: Denies: Diabetes Mellitus Type 1, Diabetes Mellitus Type 2 Renal/ Medical History: Denies: Chronic Kidney Disease, End Stage Renal Disease Malignancy Medical History: Reports: Other - Prostate metastatic to liver and bone GI Medical History: Reports: Gastroesophageal Reflux Disease Denies: Cirrhosis, Diverticulitis Musculoskeltal Medical History: Reports: Arthritis Skin Medical History: Denies: Eczema, Psoriasis Psychiatric Medical History: Reports: Tobacco Dependency Hematology: Reports: Anemia, Other - Thrombocytopenia Past Surgical History Past Surgical History: Reports: Appendectomy, Orthopedic Surgery - L carpal kelechi cornelio Social History Information Source: Patient, Relative Lives with: Family Smoking Status: Current Every Day Smoker Frequency of Alcohol Use: None Hx Recreational Drug Use: No Hx Prescription Drug Abuse: No - Advance Directive Resuscitation Status: Full Code Surrogate healthcare decision maker:: The patient does have a healthcare proxy or healthcare power of rn orthopedic. His brother is in fact named on the document. His brother did report, in front of his family, that he would defer to the wishes of the patient's in that situation. We always encourage group discussion and if possible consensus with regard to these decisions. I did encourage him to bring a copy of the document to the hospital to be on file. Family History Family History: Reviewed & Not Pertinent, COPD, Hypertension Parental Family History Reviewed: Yes Children Family History Reviewed: Yes Sibling(s) Family History Reviewed.: Yes Medication/Allergy Home Medications: Lisinopril/Hydrochlorothiazide [Lisinopril-Hctz 20-25 mg Tab] 1 each PO DAILY 06/18/18 Oxycodone HCl [Oxy-Ir 5 mg Tablet] 30 mg PO Q6HP PRN 06/18/18 Oxycodone HCl [Oxycontin] 60 mg PO Q12 06/18/18 Fluticasone Propionate [Flonase Nasal Luverne 50 Mcg/Luverne 16 gm] 1 spray NASL BID #1 spray.pump 06/19/18 Tamsulosin HCl [Flomax] 0.4 mg PO DAILY 10/11/18 Allergies/Adverse Reactions: Sulfa (Sulfonamide Antibiotics) Allergy (Severe, Verified 01/03/19 16:45) hot and burning Review of Systems Constitutional: PRESENT: fatigue, weight gain. ABSENT: fever(s), headache(s) Eyes: ABSENT: visual disturbances Ears: ABSENT: hearing changes Nose, Mouth, and Throat: ABSENT: mouth pain, sore throat Cardiovascular: PRESENT: edema - Marked lower extremity edema. ABSENT: chest pain, palpitations Respiratory: ABSENT: cough, dyspnea, hemoptysis Gastrointestinal: PRESENT: abdominal pain - Right upper quadrant, constipation, heartburn. ABSENT: diarrhea, melena, vomiting Genitourinary: ABSENT: hematuria Musculoskeletal: PRESENT: back pain Integumentary: ABSENT: diaphoresis, pruritus, rash Neurological: ABSENT: abnormal speech, focal weakness, lack of coordination, memory loss Psychiatric: PRESENT: depression - Appears depressed. ABSENT: anxiety Physical Exam Vital Signs: Temp Pulse Resp BP Pulse Ox 13 148/80 H 99 01/03/19 17:01 01/03/19 17:01 01/03/19 17:01 Intake & Output 01/02/19 01/03/19 01/04/19 06:59 06:59 06:59 Intake Total 500 Balance 500 Weight 61 kg General appearance: PRESENT: cooperative, mild distress - Mild to moderate distress, well-developed Head exam: PRESENT: normocephalic Eye exam: PRESENT: conjunctiva pale, EOMI, scleral icterus. ABSENT: nystagmus, periorbital swelling Ear exam: PRESENT: normal external ear exam Mouth exam: PRESENT: dry mucosa, tongue midline Teeth exam: ABSENT: edentulous Neck exam: ABSENT: carotid bruit, lymphadenopathy, tenderness Respiratory exam: PRESENT: clear to auscultation kermit, symmetrical. ABSENT: rales, rhonchi, tachypnea, wheezes Cardiovascular exam: PRESENT: RRR, +S1, +S2, other - As for Pulses: PRESENT: normal dorsalis pedis pul GI/Abdominal exam: PRESENT: distended, normal bowel sounds, soft, tenderness - Right upper quadrant Rectal exam: PRESENT: deferred Gentrourinary exam: ABSENT: indwelling catheter Extremities exam: PRESENT: +2 edema. ABSENT: calf tenderness Musculoskeletal exam: PRESENT: ambulatory Neurological exam: PRESENT: alert, awake, oriented to person, oriented to place, oriented to time, oriented to situation, CN II-XII grossly intact Psychiatric exam: PRESENT: depressed, flat affect. ABSENT: agitated, anxious Focused psych exam: ABSENT: delusional, restlessness Skin exam: PRESENT: jaundice, pallor, other - Sallow complexion Results Laboratory Results: 01/03/19 16:15 01/03/19 16:15 01/03/19 01/03/19 16:15 16:15 WBC 5.9 RBC 1.91 L Hgb 5.7 L Hct 16.5 L MCV 86 MCH 29.6 MCHC 34.3 RDW 17.0 H Plt Count 25 L* Seg Neutrophils % Not Reportable Lymphocytes % Not Reportable Monocytes % Not Reportable Eosinophils % Not Reportable Basophils % Not Reportable Absolute Neutrophils Not Reportable Absolute Lymphocytes Not Reportable Absolute Monocytes Not Reportable Absolute Eosinophils Not Reportable Absolute Basophils Not Reportable Sodium 137.4 Potassium 3.8 Chloride 98 Carbon Dioxide 31 H Anion Gap 8 BUN 32 H Creatinine 0.73 Est GFR ( Amer) > 60 Est GFR (Non-Af Amer) > 60 Glucose 105 Calcium 9.6 Total Bilirubin 3.3 H AST 212 H ALT 50 Alkaline Phosphatase 527 H Total Protein 5.9 L Albumin 2.8 L Lipase 16.0 L Assessment and Plan - Diagnosis (1) Anemia Qualifiers: Anemia type: other cause Is this a current diagnosis for this admission?: Yes Plan: Anemia secondary to chronic metastatic malignancy with possible iron deficiency. The patient's hemoglobin is only 5.7. 2 units of packed red blood cells have been ordered. He may benefit from furosemide in between the units. We will recheck his hemoglobin posttransfusion. We will discuss with hematology reasonable goal for the patient's hemoglobin considering his underlying malignancy. The current medication for his prostate cancer does not list anemia or thrombocytopenia as an adverse effect. (2) Thrombocytopenia Is this a current diagnosis for this admission?: Yes Plan: The patient will receive 2 units of platelets. 1 tonight and 1 tomorrow. There is no evidence of active bleeding. He does have elevated transaminases and an elevated prothrombin time. Continue to monitor for signs of bleeding and follow platelet count. (3) Pain of metastatic malignancy Is this a current diagnosis for this admission?: Yes Plan: Severe pain from the metastatic malignancy. He has a large (11 x 7 cm) lesion in the right lobe of the liver. There are multiple smaller metastatic lesions. The primary lesion is actually exhibiting mass-effect on hepatic tissue and vascular structures. There are also bony metastases in the skull, pelvis ribs and scapula. The patient takes 40 mg of OxyContin twice a day and 30 mg of immediate release oxycodone every 4-6 hours as needed. I have also ordered intravenous Dilaudid. Aggressive bowel regimen to prevent opiate-induced constipation. (4) Prostate cancer metastatic to bone Is this a current diagnosis for this admission?: Yes Plan: Currently on Xtandi for his metastatic prostate cancer. Lytic lesions have caused increase in alkaline phosphatase. Pain management as above. (5) Cancer, metastatic to liver Is this a current diagnosis for this admission?: Yes Plan: Multiple metastases to the liver including a large 11 x 7 cm mass in the right lobe of the liver. This is accounting for the patient's right upper quadrant pain. With the degree and severity of metastases the patient would be appropri ate for palliative care/hospice consult. I will discuss with oncology as to who might initiate advance care planning talks. (6) Abnormal liver enzymes Is this a current diagnosis for this admission?: Yes Plan: Elevated transaminases and bilirubin secondary to liver metastases. (7) Hypertension Qualifiers: Hypertension type: essential hypertension Qualified Code(s): I10 - Essential (primary) hypertension Is this a current diagnosis for this admission?: Yes Plan: I have ordered 20 mg of lisinopril and 25 mg of hydrochlorothiazide separately as the combination medication is not on formulary. We will watch patient's blood pressure and we may need to increase medication. With the marked degree of edema we may initiate more aggressive diuretic therapy. (8) Constipation Qualifiers: Constipation type: drug induced constipation Qualified Code(s): K59.03 - Drug induced constipation Is this a current diagnosis for this admission?: Yes Plan: The patient would be an excellent candidate for Linzess or Relistor. For the time being we will utilize scheduled MiraLAX and Colace with senna at night. In addition bisacodyl available by mouth or by suppository. (9) Jaundice Is this a current diagnosis for this admission?: Yes Plan: Secondary to metastatic liver disease and possible hemolysis. (10) Localized edema Is this a current diagnosis for this admission?: Yes Plan: Significant lower extremity edema likely from decreased oncotic pressure from marked anemia. Serum albumin is only 2.8 and this is a contributing factor as well. - Time Time Spent with patient: 70 minutes Time Spent with patient: 35 or more minutes Smoking Cessation Education: 3 to 10 minutes Medications reviewed and adjusted accordingly: Yes - Inpatient Certification Based on my medical assessment, after consideration of the patient's comorbidities, presenting symptoms, or acuity I expect that the services needed warrant INPATIENT care.: Yes I certify that my determination is in accordance with my understanding of Medicare's requirements for reasonable and necessary INPATIENT services [42 CFR 412.3e].: Yes Medical Necessity: Significant Comorbidiites Make Outpatient Treatment Too Risky, Need Close Monitoring Due to Risk of Patient Decompensation, Need For Continuous Telemetry Monitoring, Need for Pain Control Post Hospital Care: D/C Photogrammetry Airplane Pilot Documentation
[2019-01-03 19:41] LABS: AMORPHOUS SEDIMENT,URINE TRACE /HPF; APPEARANCE,URINE SLIGHTLY-CLOUDY; BILIRUBIN,URINE SMALL (NEGATIVE); COLOR,URINE AMBER; GLUCOSE, URINE NEGATIVE (NEGATIVE); KETONES,URINE TRACE mg/dL (NEGATIVE); LEUKOCYTE ESTERASE,URINE NEGATIVE (NEGATIVE); NITRITE,URINE NEGATIVE (NEGATIVE); PROTEIN,URINE NEGATIVE (NEGATIVE); URINE SPECIFIC GRAVITY 1.017
[2019-01-03] MEDS: SENNOSIDES/DOCUSATE 8.6-50 MG 1 EACH TABLET PO SCH (22:39)
[2019-01-03] MEDS: OXYCODONE HCL SR 40 MG TABLET PO SCH (22:39)
[2019-01-04] MEDS: PANTOPRAZOLE SODIUM 40 MG TABLET.DR PO SCH (05:58)
[2019-01-04 06:43] LABS: HEMATOCRIT 21.5 % (37.9-51.0); MEAN CORPUSCULAR HEMOGLOBIN 29.2 pg (27.0-33.4); MEAN CORPUSCULAR HGB CONC 34.6 g/dL (32.0-36.0); MEAN CORPUSCULAR VOLUME 84 fl (80-97); RED BLOOD COUNT 2.54 10^6/uL (4.35-5.55); RED CELL DISTRIBUTION WIDTH 15.2 % (11.5-14.0); WHITE BLOOD COUNT 4.1 10^3/uL (4.0-10.5)
[2019-01-04 07:01] LABS: PLATELET COUNT 46 10^3/uL (150-450)
[2019-01-04 07:03] LABS: ALANINE AMINOTRANSFERASE 50 U/L (21-72); ALBUMIN 2.4 g/dL (3.5-5.0); ALKALINE PHOSPHATASE 430 U/L (38-126); ANION GAP 7 (5-19); ASPARTATE AMINO TRANSFERASE 244 U/L (17-59); BILIRUBIN,DIRECT 2.9 mg/dL (0.0-0.4); BLOOD UREA NITROGEN 26 mg/dL (7-20); CALCIUM 8.8 mg/dL (8.4-10.2); CARBON DIOXIDE 29 mmol/L (22-30); CHLORIDE 102 mmol/L (98-107); GLUCOSE 86 mg/dL (75-110); HEMOGLOBIN 7.4 g/dL (13.5-17.0); POTASSIUM 3.7 mmol/L (3.6-5.0); SODIUM 137.8 mmol/L (137-145); TOTAL PROTEIN 5.3 g/dL (6.3-8.2)
[2019-01-04 07:08] LABS: ABSOLUTE LYMPHOCYTES# (MANUAL) 0.5 10^3/uL (0.5-4.7); ABSOLUTE MONOCYTES # (MANUAL) 0.3 10^3/uL (0.1-1.4); ABSOLUTE NEUTROPHILS# (MANUAL) 3.3 10^3/uL (1.7-8.2); ANISOCYTOSIS 1+; BASOPHILS % (MANUAL) 0 % (0-2); EOSINOPHILS % (MANUAL) 0 % (0-6); LYMPHOCYTES % (MANUAL) 13 % (13-45); MONOCYTES % (MANUAL) 7 % (3-13); PLATELET COMMENT DECREASED; POLYCHROMASIA 1+; TOTAL CELLS COUNTED 100
[2019-01-04] MEDS: OXYCODONE HCL SR 40 MG TABLET PO SCH ×2 (09:34→22:25)
[2019-01-04] MEDS: HYDROCHLOROTHIAZIDE 25 MG TABLET PO SCH (09:35)
[2019-01-04] MEDS: TAMSULOSIN HCL 0.4 MG CAP.SR.24H PO SCH (09:35)
[2019-01-04] MEDS: POLYETHYLENE GLYCOL 3350 POWDER 17 GM/1 PACKET PO SCH (09:36)
[2019-01-04] MEDS: LISINOPRIL 10 MG TABLET PO SCH (09:36)
--- NOTE | 2019-01-04 12:27 | PDOC CONSULTATION ---
Consultation Consult Date: 01/04/19 Consult reason:: Hematology/Oncology consultation was requested for patient with metastatic prostate cancer. History of Present Illness Admission Date/PCP: 01/03/19 17:14 JAMEE MOYA MD History of Present Illness: MORTEZA MAN is a 53 year old male who is followed by Dr. Moya for his metastatic prostate cancer. He has been treated with Xofigo and presented to the office yesterday with RUQ abdominal pain, confusion, and severe fatigue. He was found to have significant bone and liver mets with a HGB 5.5, PLT 25. He received 2 units pRBCs and 2 units PLT last night. Today, he states that he feels better than he has in a week. He denies pain. His is at bedside. No new complaints today. asks about treating the liver. Past Medical History Cardiac Medical History: Reports: Hypertension - on meds Denies: Coronary Artery Disease, Myocardial Infarction Pulmonary Medical History: Reports: Bronchitis, Chronic Obstructive Pulmonary Disease (COPD) Denies: Asthma, Pneumonia EENT Medical History: Reports: Other - Thrombocytopenia Neurological Medical History: Denies: Hemorrhagic CVA, Ischemic CVA, Seizures Endocrine Medical History: Denies: Diabetes Mellitus Type 1, Diabetes Mellitus Type 2 Renal/ Medical History: Denies: Chronic Kidney Disease, End Stage Renal Disease Malignancy Medical History: Reports: Other - Prostate metastatic to liver and b one GI Medical History: Reports: Gastroesophageal Reflux Disease Denies: Cirrhosis, Diverticulitis Musculoskeltal Medical History: Reports: Arthritis Skin Medical History: Denies: Eczema, Psoriasis Psychiatric Medical History: Reports: Tobacco Dependency Denies: Depression - denies Hematology: Reports: Anemia, Other - Thrombocytopenia Past Surgical History Past Surgical History: Reports: Appendectomy, Orthopedic Surgery - L carpal tunnel Social History Lives with: Family Smoking Status: Current Every Day Smoker Cigarettes Packs Per Day: 1 Number of Years Smokin Last Time Smoked: 01/03/2019 Frequency of Alcohol Use: None Hx Recreational Drug Use: No Drugs: None Hx Prescription Drug Abuse: No - Advance Directive Resuscitation Status: Full Code Family History Family History: Reviewed & Not Pertinent, COPD, Hypertension Parental Family History Reviewed: Yes Children Family History Reviewed: No Sibling(s) Family History Reviewed.: No Medication/Allergy Home Medications: Diazepam 10 mg PO QHS 01/03/19 Docusate Sodium [Colace 100 mg Capsule] 100 mg PO DAILYP PRN 01/03/19 Gabapentin [Neurontin 300 mg Capsule] 300 mg PO Q8H 01/03/19 Oxycodone HCl 30 mg PO Q6HP PRN 01/03/19 Oxycodone HCl [Oxycontin] 80 mg PO Q8 01/03/19 Polyethylene Glycol 3350 [Miralax Powder 17 gm/Packet] 17 gm PO DAILYP PRN 01/03/19 Tamsulosin HCl [Flomax] 0.4 mg PO DAILY 01/03/19 Vitamin E (Dl, Acetate) [Vitamin E] 100 unit PO TID 01/03/19 Allergies/Adverse Reactions: Sulfa (Sulfonamide Antibiotics) Allergy (Severe, Verified 01/03/19 16:45) hot and burning Review of Systems Constitutional: PRESENT: fatigue. ABSENT: fever(s) Eyes: ABSENT: visual disturbances Ears: ABSENT: hearing changes Nose, Mouth, and Throat: ABSENT: sore throat Cardiovascular: ABSENT: chest pain Respiratory: PRESENT: dyspnea Gastrointestinal: PRESENT: abdominal pain Genitourinary: ABSENT: dysuria Musculoskeletal: PRESENT: muscle weakness Neurological: PRESENT: confusion Hematologic/Lymphatic: ABSENT: easy bleeding Physical Exam Vital Signs: Temp Pulse Resp BP Pulse Ox 98.7 F 100 16 112/57 L 92 01/04/19 11:03 01/04/19 11:03 01/04/19 11:03 01/04/19 11:03 01/04/19 11:03 Intake & Output 01/03/19 01/04/19 01/05/19 06:59 06:59 06:59 Intake Total 1520 331 Balance 1520 331 Weight 60.7 kg General appearance: PRESENT: well-developed, well-nourished Exam: 53 Year old male. is at bedside. Head exam: PRESENT: normocephalic Eye exam: PRESENT: PERRLA, scleral icterus Mouth exam: PRESENT: tongue midline Neck exam: ABSENT: lymphadenopathy, tenderness Respiratory exam: PRESENT: unlabored, wheezes Cardiovascular exam: PRESENT: RRR GI/Abdominal exam: PRESENT: organolmegaly - Liver greatly enlarged., soft Extremities exam: PRESENT: +2 edema Musculoskeletal exam: PRESENT: normal inspection Neurological exam: PRESENT: alert, awake Psychiatric exam: PRESENT: appropriate affect Skin exam: PRESENT: jaundice, pallor Results Laboratory Results: 01/04/19 06:00 01/04/19 06:00 01/03/19 01/03/19 01/03/19 16:15 16:15 16:15 WBC 5.9 RBC 1.91 L Hgb 5.7 L Hct 16.5 L MCV 86 MCH 29.6 MCHC 34.3 RDW 17.0 H Plt Count 25 L* Seg Neutrophils % Not Reportable Lymphocytes % Not Reportable Monocytes % Not Reportable Eosinophils % Not Reportable Basophils % Not Reportable Absolute Neutrophils Not Reportable Absolute Lymphocytes Not Reportable Absolute Monocytes Not Reportable Absolute Eosinophils Not Reportable Absolute Basophils Not Reportable Sodium 137.4 Potassium 3.8 Chloride 98 Carbon Dioxide 31 H Anion Gap 8 BUN 32 H Creatinine 0.73 Est GFR ( Amer) > 60 Est GFR (Non-Af Amer) > 60 Glucose 105 Calcium 9.6 Magnesium Total Bilirubin 3.3 H AST 212 H ALT 50 Alkaline Phosphatase 527 H Total Protein 5.9 L Albumin 2.8 L Lipase 16.0 L Urine Color Urine Appearance Urine pH Ur Specific [place] Urine Protein Urine Glucose (UA) Urine Ketones Urine Blood Urine Nitrite Ur Leukocyte Esterase Urine WBC (Auto) Urine RBC (Auto) Blood Type O NEGATIVE Antibody Screen NEGATIVE 01/03/19 01/04/19 01/04/19 19:14 06:00 06:00 WBC 4.1 RBC 2.54 L Hgb 7.4 L Hct 21.5 L MCV 84 MCH 29.2 MCHC 34.6 RDW 15.2 H Plt Count 46 L Seg Neutrophils % Not Reportable Lymphocytes % Not Reportable Monocytes % Not Reportable Eosinophils % Not Reportable Basophils % Not Reportable Absolute Neutrophils Not Reportable Absolute Lymphocytes Not Reportable Absolute Monocytes Not Reportable Absolute Eosinophils Not Reportable Absolute Basophils Not Reportable Sodium 137.8 Potassium 3.7 Chloride 102 Carbon Dioxide 29 Anion Gap 7 BUN 26 H Creatinine 0.59 Est GFR ( Amer) > 60 Est GFR (Non-Af Amer) > 60 Glucose 86 Calcium 8.8 Magnesium 1.7 Total Bilirubin 4.0 H AST 244 H ALT 50 Alkaline Phosphatase 430 H Total Protein 5.3 L Albumin 2.4 L Lipase Urine Color JOSUE Urine Appearance SLIGHTLY-CLOUDY Urine pH 5.0 Ur Specific [place] 1.017 Urine Protein NEGATIVE Urine Glucose (UA) NEGATIVE Urine Ketones TRACE H Urine Blood NEGATIVE Urine Nitrite NEGATIVE Ur Leukocyte Esterase NEGATIVE Urine WBC (Auto) 1 Urine RBC (Auto) 0 Blood Type Antibody Screen Status: Image reviewed by me Assessment & Plan - Diagnosis (1) Prostate cancer metastatic to bone Is this a current diagnosis for this admission?: Yes Plan: s/p Xofigo ([place] treatments). It is believed that this may have caused severe bone marrow suppression. (2) Cancer, metastatic to liver Is this a current diagnosis for this admission?: Yes Plan: His Bili is increasing. Agree with checking ammonia level today and treating if needed. I have explained to the patient and his that further treatment for the cancer may not be possible due to liver failure. Will give IV fluids, add Lactulose if ammonia is elevated and see if there is improvement over the next 48 hours. (3) Anemia Qualifiers: Anemia type: other cause Is this a current diagnosis for this admission?: Yes Plan: Thought to be bone marrow failure due to cancer and Xofigo treatments. He has responded well to the transfusions. He is currently stable, but consider further transfusion if symptomatic. (4) Thrombocytopenia Is this a current diagnosis for this admission?: Yes Plan: s/p PLT transfusion. Currently without evidence of bleeding. Transfuse if PLT<10 or if evidence of bleeding. (5) Pain of metastatic malignancy Is this a current diagnosis for this admission?: Yes Plan: Currently well controlled. He has not required any PRN meds. May consider decreasing OXYCONTIN to 20 mg BID if patient has further confusion or somnolence. - Plan Summary Plan Summary: He is a bit wheezy in the lungs. I will order NEBs PRN for this. I discussed code status with patient and . He will let me know if he wants to change from full code to DNR. As of now, he stays Full code. Patient was discussed with Dr. Vance
--- NOTE | 2019-01-04 15:00 | PDOC PROGRESS REPORT ---
Subjective Progress Note for:: 01/04/19 Subjective:: The patient feels and in fact looks better today. He is much more comfortable. Family reports that there has been some mild confusion. Reason For Visit: SEVERE ANEMIA,THROMBOCYTOPENIA,METASTATIC PROSTATE Physical Exam Vital Signs: Temp Pulse Resp BP Pulse Ox 98.7 F 100 16 112/57 L 92 01/04/19 11:03 01/04/19 11:03 01/04/19 11:03 01/04/19 11:03 01/04/19 11:03 Intake & Output 01/03/19 01/04/19 01/05/19 06:59 06:59 06:59 Intake Total 1520 331 Balance 1520 331 Weight 60.7 kg General appearance: PRESENT: no acute distress, cooperative, well-developed Head exam: PRESENT: atraumatic, normocephalic Eye exam: PRESENT: conjunctiva pale, scleral icterus Ear exam: PRESENT: normal external ear exam Mouth exam: PRESENT: moist, tongue midline Respiratory exam: ABSENT: accessory muscle use Cardiovascular exam: PRESENT: RRR, +S1, +S2 GI/Abdominal exam: PRESENT: normal bowel sounds, organolmegaly - Hepatomegaly, soft, tenderness - Right upper quadrant Rectal exam: PRESENT: deferred Extremities exam: PRESENT: +2 edema Neurological exam: PRESENT: alert, awake, oriented to person, oriented to place, oriented to time, oriented to situation, CN II-XII grossly intact, other - Asterixis noted bilaterally Psychiatric exam: PRESENT: appropriate affect. ABSENT: agitated, anxious Focused psych exam: ABSENT: delusional, restlessness Skin exam: PRESENT: jaundice, pallor - Sallow complexion Results Laboratory Results: 01/04/19 06:00 01/04/19 06:00 01/03/19 01/03/19 01/03/19 16:15 16:15 16:15 WBC 5.9 RBC 1.91 L Hgb 5.7 L Hct 16.5 L MCV 86 MCH 29.6 MCHC 34.3 RDW 17.0 H Plt Count 25 L* Seg Neutrophils % Not Reportable Lymphocytes % Not Reportable Monocytes % Not Reportable Eosinophils % Not Reportable Basophils % Not Reportable Absolute Neutrophils Not Reportable Absolute Lymphocytes Not Reportable Absolute Monocytes Not Reportable Absolute Eosinophils Not Reportable Absolute Basophils Not Reportable Sodium 137.4 Potassium 3.8 Chloride 98 Carbon Dioxide 31 H Anion Gap 8 BUN 32 H Creatinine 0.73 Est GFR ( Amer) > 60 Est GFR (Non-Af Amer) > 60 Glucose 105 Calcium 9.6 Magnesium Total Bilirubin 3.3 H AST 212 H ALT 50 Alkaline Phosphatase 527 H Total Protein 5.9 L Albumin 2.8 L Lipase 16.0 L Urine Color Urine Appearance Urine pH Ur Specific [place] Urine Protein Urine Glucose (UA) Urine Ketones Urine Blood Urine Nitrite Ur Leukocyte Esterase Urine WBC (Auto) Urine RBC (Auto) Blood Type O NEGATIVE Antibody Screen NEGATIVE 01/03/19 01/04/19 01/04/19 19:14 06:00 06:00 WBC 4.1 RBC 2.54 L Hgb 7.4 L Hct 21.5 L MCV 84 MCH 29.2 MCHC 34.6 RDW 15.2 H Plt Count 46 L Seg Neutrophils % Not Reportable Lymphocytes % Not Reportable Monocytes % Not Reportable Eosinophils % Not Reportable Basophils % Not Reportable Absolute Neutrophils Not Reportable Absolute Lymphocytes Not Reportable Absolute Monocytes Not Reportable Absolute Eosinophils Not Reportable Absolute Basophils Not Reportable Sodium 137.8 Potassium 3.7 Chloride 102 Carbon Dioxide 29 Anion Gap 7 BUN 26 H Creatinine 0.59 Est GFR ( Amer) > 60 Est GFR (Non-Af Amer) > 60 Glucose 86 Calcium 8.8 Magnesium 1.7 Total Bilirubin 4.0 H AST 244 H ALT 50 Alkaline Phosphatase 430 H Total Protein 5.3 L Albumin 2.4 L Lipase Urine Color JOSUE Urine Appearance SLIGHTLY-CLOUDY Urine pH 5.0 Ur Specific [place] 1.017 Urine Protein NEGATIVE Urine Glucose (UA) NEGATIVE Urine Ketones TRACE H Urine Blood NEGATIVE Urine Nitrite NEGATIVE Ur Leukocyte Esterase NEGATIVE Urine WBC (Auto) 1 Urine RBC (Auto) 0 Blood Type Antibody Screen Assessment and Plan - Diagnosis (1) Anemia Qualifiers: Anemia type: bone marrow failure Bone marrow failure anemia type: other bone marrow failure Qualified Code(s): D61.89 - Other specified aplastic anemias and other bone marrow failure syndromes Is this a current diagnosis for this admission?: Yes Plan: Appreciate oncology's input. The patient received 2 units of packed red blood cells. His hemoglobin is 7.4. Clinically the patient feels much better. His anemia is most likely due to depleted bone marrow from the metastatic malignancy. We will continue to monitor his hemoglobin. The increased hemoglobin should improve his oncotic pressure and help with his lower extremity edema. (2) Thrombocytopenia Is this a current diagnosis for this admission?: Yes Plan: The patient is getting his second unit of platelets. We will continue to monito r the platelet count. (3) Pain of metastatic malignancy Is this a current diagnosis for this admission?: Yes Plan: On the 40 mg of OxyContin the patient has not needed any breakthrough medication. If his liver enzymes continue to increase the 40 mg dose may need to be reduced. Blood work is ordered for tomorrow. Monitor for opioid-induced constipation. (4) Prostate cancer metastatic to bone Is this a current diagnosis for this admission?: Yes Plan: Dr. Campuzano will discuss the case with Dr. Saida linda. Based on the new diagnostic imaging with a large right hepatic lobe lesion and multiple other metastases the patient will likely need a hospice consult. Dr. Campuzano and Dr. Cho will continue to assess and order the consult. (5) Cancer, metastatic to liver Is this a current diagnosis for this admission?: Yes Plan: The liver enzymes are increasing. The patient did have asterixis. Ammonia level is normal. We will continue to monitor. We may need to adjust medications based on hepatic function. (6) Abnormal liver enzymes Is this a current diagnosis for this admission?: Yes Plan: As above (7) Hypertension Qualifiers: Hypertension type: essential hypertension Qualified Code(s): I10 - Essential (primary) hypertension Is this a current diagnosis for this admission?: Yes Plan: Currently on lisinopril and hydrochlorothiazide. Blood pressures are normal to low. He was slightly higher yesterday but I believe that was because he was in pain. May need to adjust the diuretic component considering his lower extremity edema. Continue to monitor blood pressure and adjust medications accordingly. (8) Constipation Qualifiers: Constipation type: drug induced constipation Qualified Code(s): K59.03 - Drug induced constipation Is this a current diagnosis for this admission?: Yes Plan: Continue current stool softener regimen with as needed laxatives available. (9) Jaundice Is this a current diagnosis for this admission?: Yes Plan: Bilirubin in fact is slightly higher today. Review of the CT scan of the abdomen suggests that there could be an obstructive component due to the size of the liver lesion. We will continue to monitor. (10) Localized edema Is this a current diagnosis for this admission?: Yes Plan: I have switched the patient to TIMOTEO apontee to provide mild compression. If necessary we may give albumin and diuretic therapy as well as stronger compression. Elevate legs when possible. - Time Time Spent with patient: 15-24 minutes Medications reviewed and adjusted accordingly: Yes Anticipated discharge: Home
[2019-01-04] MEDS: OXYCODONE HCL IR 5 MG TABLET PO PRN (16:56)
[2019-01-04] MEDS: SENNOSIDES/DOCUSATE 8.6-50 MG 1 EACH TABLET PO SCH (22:25)
[2019-01-05] MEDS: PANTOPRAZOLE SODIUM 40 MG TABLET.DR PO SCH (06:11)
[2019-01-05 06:42] LABS: HEMATOCRIT 20.8 % (37.9-51.0); MEAN CORPUSCULAR HGB CONC 34.5 g/dL (32.0-36.0); MEAN CORPUSCULAR VOLUME 84 fl (80-97); RED BLOOD COUNT 2.48 10^6/uL (4.35-5.55); RED CELL DISTRIBUTION WIDTH 15.7 % (11.5-14.0); WHITE BLOOD COUNT 4.5 10^3/uL (4.0-10.5)
[2019-01-05 06:56] LABS: ALANINE AMINOTRANSFERASE 49 U/L (21-72); ALBUMIN 2.5 g/dL (3.5-5.0); ALKALINE PHOSPHATASE 387 U/L (38-126); ASPARTATE AMINO TRANSFERASE 230 U/L (17-59); BILIRUBIN,DIRECT 2.5 mg/dL (0.0-0.4); BILIRUBIN,TOTAL 3.4 mg/dL (0.2-1.3); BLOOD UREA NITROGEN 20 mg/dL (7-20); CALCIUM 9.8 mg/dL (8.4-10.2); CARBON DIOXIDE 31 mmol/L (22-30); CHLORIDE 101 mmol/L (98-107); GLUCOSE 90 mg/dL (75-110); POTASSIUM 3.3 mmol/L (3.6-5.0); TOTAL PROTEIN 5.4 g/dL (6.3-8.2)
[2019-01-05 07:03] LABS: HEMOGLOBIN 7.2 g/dL (13.5-17.0); PLATELET COUNT 36 10^3/uL (150-450)
[2019-01-05 07:07] LABS: ANION GAP 5 (5-19)
[2019-01-05 07:10] LABS: ABSOLUTE LYMPHOCYTES# (MANUAL) 0.6 10^3/uL (0.5-4.7); ABSOLUTE MONOCYTES # (MANUAL) 0.2 10^3/uL (0.1-1.4); ABSOLUTE NEUTROPHILS# (MANUAL) 3.7 10^3/uL (1.7-8.2); BASOPHILS % (MANUAL) 0 % (0-2); EOSINOPHILS % (MANUAL) 1 % (0-6); LYMPHOCYTES % (MANUAL) 13 % (13-45); METAMYELOCYTES % (MANUAL) 1 % (0); MONOCYTES % (MANUAL) 4 % (3-13); MYELOCYTES % (MANUAL) 1 % (0); NUCLEATED RED BLOOD CELLS 1 /100 WBC (0); SEGMENTED NEUTROPHILS % (MAN) 67 % (42-78); TOTAL CELLS COUNTED 100
[2019-01-05 07:14] LABS: PLATELET COMMENT DECREASED
[2019-01-05 07:17] LABS: ANISOCYTOSIS 1+; HYPOCHROMASIA 1+
[2019-01-05 07:18] LABS: OVALOCYTES 1+; SCHISTOCYTES SLIGHT; TEAR DROP CELLS SLIGHT
[2019-01-05 07:19] LABS: BAND NEUTROPHILS % (MANUAL) 13 % (3-5)
[2019-01-05] MEDS: OXYCODONE HCL IR 5 MG TABLET PO PRN ×3 (08:58→21:17)
[2019-01-05] MEDS: HYDROCHLOROTHIAZIDE 25 MG TABLET PO SCH (10:21)
[2019-01-05] MEDS: OXYCODONE HCL SR 40 MG TABLET PO SCH ×2 (10:21→22:29)
[2019-01-05] MEDS: POLYETHYLENE GLYCOL 3350 POWDER 17 GM/1 PACKET PO SCH (10:21)
[2019-01-05] MEDS: LISINOPRIL 10 MG TABLET PO SCH (10:22)
[2019-01-05] MEDS: TAMSULOSIN HCL 0.4 MG CAP.SR.24H PO SCH (10:22)
[2019-01-05] MEDS ORDERED: ALBUTEROL SULFATE 0.083% NEB 2.5 MG/3 ML AMPUL NEB PRN (10:35)
--- NOTE | 2019-01-05 10:40 | PDOC PROGRESS REPORT ---
Subjective Progress Note for:: 01/05/19 Subjective:: Patient continues to feel better. No new complaints over night. No dyspnea. No nausea. No increased pain. Reason For Visit: SEVERE ANEMIA,THROMBOCYTOPENIA,METASTATIC PROSTATE Physical Exam Vital Signs: Temp Pulse Resp BP Pulse Ox 98.4 F 89 16 122/63 93 01/05/19 03:40 01/05/19 07:00 01/05/19 03:40 01/05/19 03:40 01/05/19 03:40 Intake & Output 01/04/19 01/05/19 01/06/19 06:59 06:59 06:59 Intake Total 1520 971 Balance 1520 971 Weight 60.7 kg 60.7 kg General appearance: PRESENT: well-developed, well-nourished Respiratory exam: PRESENT: wheezes Cardiovascular exam: PRESENT: RRR Neurological exam: PRESENT: alert, awake Psychiatric exam: PRESENT: flat affect Skin exam: PRESENT: jaundice Results Laboratory Results: 01/05/19 06:15 01/05/19 06:15 01/04/19 01/05/19 01/05/19 13:04 06:15 06:15 WBC 4.5 RBC 2.48 L Hgb 7.2 L Hct 20.8 L MCV 84 MCH 29.0 MCHC 34.5 RDW 15.7 H Plt Count 36 L Seg Neutrophils % Not Reportable Lymphocytes % Not Reportable Monocytes % Not Reportable Eosinophils % Not Reportable Basophils % Not Reportable Absolute Neutrophils Not Reportable Absolute Lymphocytes Not Reportable Absolute Monocytes Not Reportable Absolute Eosinophils Not Reportable Absolute Basophils Not Reportable Sodium 136.0 L Potassium 3.3 L Chloride 101 Carbon Dioxide 31 H Anion Gap 5 BUN 20 Creatinine 0.61 Est GFR ( Amer) > 60 Est GFR (Non-Af Amer) > 60 Glucose 90 Calcium 9.8 Magnesium 1.6 Total Bilirubin 3.4 H AST 230 H ALT 49 Alkaline Phosphatase 387 H Ammonia < 8.7 L Total Protein 5.4 L Albumin 2.5 L 01/03/19 19:14 Clean Catch Midstream Urine Culture - Final NO GROWTH 2 DAYS Assessment & Plan - Diagnosis (1) Prostate cancer metastatic to bone Is this a current diagnosis for this admission?: Yes Plan: All treatment on hold. (2) Cancer, metastatic to liver Is this a current diagnosis for this admission?: Yes (3) Anemia Qualifiers: Anemia type: bone marrow failure Bone marrow failure anemia type: other bone marrow failure Qualified Code(s): D61.89 - Other specified aplastic anemias and other bone marrow failure syndromes Is this a current diagnosis for this admission?: Yes Plan: HGB stable today. Will hold off on blood transfusions for now. (4) Thrombocytopenia Is this a current diagnosis for this admission?: Yes Plan: Stable. No active bleeding. (5) Pain of metastatic malignancy Is this a current diagnosis for this admission?: Yes - Plan Summary Plan Summary: His liver chemistries are stable. His ammonia was NOT elevated. We discussed the fact that his symptoms may have been partially related to a buildup of his opiods. Will continue to monitor today. Dr. Cho will return tomorrow for further discussion.
[2019-01-05] MEDS: POTASSIUM CHLORIDE 10 MEQ CAPSULE.ER PO SCH (11:14)
[2019-01-05] MEDS: SENNOSIDES/DOCUSATE 8.6-50 MG 1 EACH TABLET PO SCH (22:29)
--- NOTE | 2019-01-06 06:16 | PDOC PROGRESS REPORT ---
Subjective Progress Note for:: 01/05/19 Subjective:: The patient has multiple family members visiting. He reports that he is going good again today. He notes that there is less swelling in his legs. His pain has been under good control. Reason For Visit: SEVERE ANEMIA,THROMBOCYTOPENIA,METASTATIC PROSTATE Physical Exam Vital Signs: Temp Pulse Resp BP Pulse Ox 98.7 F 103 H 16 123/70 94 01/05/19 12:07 01/05/19 14:00 01/05/19 12:07 01/05/19 12:07 01/05/19 12:07 Intake & Output 01/04/19 01/05/19 01/06/19 06:59 06:59 06:59 Intake Total 1520 971 Balance 1520 971 Weight 60.7 kg 60.7 kg General appearance: PRESENT: no acute distress, well-developed Head exam: PRESENT: atraumatic, normocephalic Eye exam: PRESENT: conjunctiva pale, scleral icterus Ear exam: PRESENT: normal external ear exam Respiratory exam: PRESENT: rales - Bilateral bases, symmetrical, unlabored. ABSENT: accessory muscle use, crackles, rhonchi, wheezes Cardiovascular exam: PRESENT: +S1, +S2, tachycardia GI/Abdominal exam: PRESENT: normal bowel sounds, soft. ABSENT: firm, guarding, tenderness Rectal exam: PRESENT: deferred Gentrourinary exam: ABSENT: indwelling catheter Extremities exam: PRESENT: +1 edema. ABSENT: calf tenderness Musculoskeletal exam: PRESENT: ambulatory Neurological exam: PRESENT: alert, awake, oriented to person, oriented to place, oriented to time, oriented to situation, CN II-XII grossly intact Psychiatric exam: PRESENT: appropriate affect, normal mood. ABSENT: agitated, anxious Focused psych exam: ABSENT: delusional, restlessness Skin exam: PRESENT: jaundice, pallor Results Laboratory Results: 01/05/19 06:15 01/05/19 06:15 01/05/19 01/05/19 06:15 06:15 WBC 4.5 RBC 2.48 L Hgb 7.2 L Hct 20.8 L MCV 84 MCH 29.0 MCHC 34.5 RDW 15.7 H Plt Count 36 L Seg Neutrophils % Not Reportable Lymphocytes % Not Reportable Monocytes % Not Reportable Eosinophils % Not Reportable Basophils % Not Reportable Absolute Neutrophils Not Reportable Absolute Lymphocytes Not Reportable Absolute Monocytes Not Reportable Absolute Eosinophils Not Reportable Absolute Basophils Not Reportable Sodium 136.0 L Potassium 3.3 L Chloride 101 Carbon Dioxide 31 H Anion Gap 5 BUN 20 Creatinine 0.61 Est GFR ( Amer) > 60 Est GFR (Non-Af Amer) > 60 Glucose 90 Calcium 9.8 Magnesium 1.6 Total Bilirubin 3.4 H AST 230 H ALT 49 Alkaline Phosphatase 387 H Total Protein 5.4 L Albumin 2.5 L 01/03/19 19:14 Clean Catch Midstream Urine Culture - Final NO GROWTH 2 DAYS Assessment and Plan - Diagnosis (1) Anemia Qualifiers: Anemia type: bone marrow failure 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 Will recheck tomorrow. Most likely bone marrow failure secondary to metastatic malignancy. (2) Thrombocytopenia Is this a current diagnosis for this admission?: Yes Plan: Platelet counts are decreased again today. I will recheck tomorrow. There is no evidence of bleeding and therefore I have not ordered additional units of platelets. (3) Pain of metastatic malignancy Is this a current diagnosis for this admission?: Yes Plan: Patient reports excellent control of pain on current regimen. (4) Prostate cancer metastatic to bone Is this a current diagnosis for this admission?: Yes Plan: Multiple bone metastases. Please see oncology note as well. Consider hospice referral. (5) Cancer, metastatic to liver Is this a current diagnosis for this admission?: Yes Plan: Liver enzymes slightly improved today. Still with multiple and large tumor burden in the liver. Consider hospice consult. (6) Abnormal liver enzymes Is this a current diagnosis for this admission?: Yes Plan: Bilirubin and liver enzymes slightly improved (7) Hypertension Qualifiers: Hypertension type: essential hypertension Qualified Code(s): I10 - Essential (primary) hypertension Is this a current diagnosis for this admission?: Yes Plan: Good blood pressure control. Continue current regimen. (8) Constipation Qualifiers: Constipation type: drug induced constipation Qualified Code(s): K59.03 - Drug induced constipation Is this a current diagnosis for this admission?: Yes Plan: Continue stool softeners for opiate-induced constipation. (9) Jaundice Is this a current diagnosis for this admission?: Yes Plan: Bilirubin slightly lower today. (10) Localized edema Is this a current diagnosis for this admission?: Yes Plan: Slightly better with improved oncotic pressure. I encouraged the patient to elevate his legs multiple times during the day. - Time Time Spent with patient: 15-24 minutes Medications reviewed and adjusted accordingly: Yes Anticipated discharge: Home
[2019-01-06] MEDS: PANTOPRAZOLE SODIUM 40 MG TABLET.DR PO SCH (06:36)
[2019-01-06 06:57] LABS: HEMATOCRIT 21.7 % (37.9-51.0); MEAN CORPUSCULAR HEMOGLOBIN 29.1 pg (27.0-33.4); MEAN CORPUSCULAR HGB CONC 34.5 g/dL (32.0-36.0); MEAN CORPUSCULAR VOLUME 84 fl (80-97); RED BLOOD COUNT 2.57 10^6/uL (4.35-5.55); RED CELL DISTRIBUTION WIDTH 15.8 % (11.5-14.0); WHITE BLOOD COUNT 3.9 10^3/uL (4.0-10.5)
[2019-01-06 07:12] LABS: ALANINE AMINOTRANSFERASE 45 U/L (21-72); ALBUMIN 2.5 g/dL (3.5-5.0); ALKALINE PHOSPHATASE 403 U/L (38-126); ANION GAP 7 (5-19); ASPARTATE AMINO TRANSFERASE 164 U/L (17-59); BILIRUBIN,DIRECT 2.2 mg/dL (0.0-0.4); BLOOD UREA NITROGEN 18 mg/dL (7-20); CALCIUM 9.9 mg/dL (8.4-10.2); CARBON DIOXIDE 31 mmol/L (22-30); CHLORIDE 97 mmol/L (98-107); GLUCOSE 79 mg/dL (75-110); POTASSIUM 3.8 mmol/L (3.6-5.0); SODIUM 134.7 mmol/L (137-145); TOTAL PROTEIN 5.5 g/dL (6.3-8.2)
[2019-01-06 08:25] LABS: ABSOLUTE LYMPHOCYTES# (MANUAL) 0.6 10^3/uL (0.5-4.7); ABSOLUTE MONOCYTES # (MANUAL) 0.2 10^3/uL (0.1-1.4); BAND NEUTROPHILS % (MANUAL) 5 % (3-5); BASOPHILS % (MANUAL) 1 % (0-2); EOSINOPHILS % (MANUAL) 1 % (0-6); LYMPHOCYTES % (MANUAL) 16 % (13-45); METAMYELOCYTES % (MANUAL) 2 % (0); MONOCYTES % (MANUAL) 4 % (3-13); NUCLEATED RED BLOOD CELLS 4 /100 WBC (0); SEGMENTED NEUTROPHILS % (MAN) 71 % (42-78); TOTAL CELLS COUNTED 100
[2019-01-06 08:28] LABS: ANISOCYTOSIS SLIGHT; POIKILOCYTOSIS 1+
[2019-01-06 08:29] LABS: HEMOGLOBIN 7.5 g/dL (13.5-17.0); OVALOCYTES 1+; PLATELET COMMENT DECREASED; PLATELET COUNT 29 10^3/uL (150-450)
--- NOTE | 2019-01-06 08:34 | PDOC PROGRESS REPORT ---
Subjective Progress Note for:: 01/06/19 Subjective:: Patient seems to be doing better. Energy level is better, mental status is at baseline. Reviewed counts, platelet count and hemoglobin is stable. Bilirubin is slightly lower. AST has come down. Reason For Visit: SEVERE ANEMIA,THROMBOCYTOPENIA,METASTATIC PROSTATE Physical Exam Vital Signs: Temp Pulse Resp BP Pulse Ox 98.7 F 102 H 16 121/64 95 01/06/19 07:36 01/06/19 07:36 01/06/19 07:36 01/06/19 07:36 01/06/19 07:36 Intake & Output 01/05/19 01/06/19 01/07/19 06:59 06:59 06:59 Intake Total 971 240 Balance 971 240 Weight 60.7 kg 60.7 kg General appearance: PRESENT: no acute distress, well-developed, well-nourished Head exam: PRESENT: atraumatic, normocephalic Eye exam: PRESENT: conjunctiva pink, EOMI, PERRLA. ABSENT: scleral icterus Ear exam: PRESENT: normal external ear exam Mouth exam: PRESENT: moist, tongue midline Neck exam: ABSENT: carotid bruit, JVD, lymphadenopathy, thyromegaly Respiratory exam: PRESENT: clear to auscultation kermit. ABSENT: rales, rhonchi, wheezes Cardiovascular exam: PRESENT: RRR. ABSENT: diastolic murmur, rubs, systolic murmur Pulses: PRESENT: normal dorsalis pedis pul Vascular exam: PRESENT: normal capillary refill GI/Abdominal exam: PRESENT: normal bowel sounds, soft. ABSENT: distended, guarding, mass, organolmegaly, rebound, tenderness Rectal exam: PRESENT: deferred Extremities exam: PRESENT: full ROM. ABSENT: calf tenderness, clubbing, pedal edema Neurological exam: PRESENT: alert, awake, oriented to person, oriented to place, oriented to time, oriented to situation, CN II-XII grossly intact. ABSENT: motor sensory deficit Psychiatric exam: PRESENT: appropriate affect, normal mood. ABSENT: homicidal ideation, suicidal ideation Skin exam: PRESENT: dry, intact, warm. ABSENT: cyanosis, rash Results Laboratory Results: 01/06/19 06:35 01/06/19 06:35 01/06/19 01/06/19 06:35 06:35 WBC 3.9 L RBC 2.57 L Hgb 7.5 L Hct 21.7 L MCV 84 MCH 29.1 MCHC 34.5 RDW 15.8 H Plt Count 29 L* Seg Neutrophils % Not Reportable Lymphocytes % Not Reportable Monocytes % Not Reportable Eosinophils % Not Reportable Basophils % Not Reportable Absolute Neutrophils Not Reportable Absolute Lymphocytes Not Reportable Absolute Monocytes Not Reportable Absolute Eosinophils Not Reportable Absolute Basophils Not Reportable Sodium 134.7 L Potassium 3.8 Chloride 97 L Carbon Dioxide 31 H Anion Gap 7 BUN 18 Creatinine 0.55 Est GFR ( Amer) > 60 Est GFR (Non-Af Amer) > 60 Glucose 79 Calcium 9.9 Magnesium 1.5 L Total Bilirubin 3.0 H AST 164 H ALT 45 Alkaline Phosphatase 403 H Total Protein 5.5 L Albumin 2.5 L 01/03/19 19:14 Clean Catch Midstream Urine Culture - Final NO GROWTH 2 DAYS Assessment & Plan - Diagnosis (1) Cancer, metastatic to liver Is this a current diagnosis for this admission?: Yes Plan: This is the cause of the hyperbilirubinemia, has improved with some hydration. We will need to monitor it over time to see if it comes down to a level that we can consider treatment. (2) Pancytopenia due to antineoplastic chemotherapy Is this a current diagnosis for this admission?: Yes Plan: Mostly secondary to the XOFIGO counts are stable. Holding XTANDI until further notice. (3) Metastatic malignant neoplasm to prostate Is this a current diagnosis for this admission?: Yes Plan: Progressive disease, had a long discussion with patient today about next steps of care, prognosis, he will have discharged today, labs to see us back next week and follow-up with us 2 weeks.
[2019-01-06] MEDS: HYDROCHLOROTHIAZIDE 25 MG TABLET PO SCH (09:30)
[2019-01-06] MEDS: POTASSIUM CHLORIDE 10 MEQ CAPSULE.ER PO SCH (09:30)
[2019-01-06] MEDS: OXYCODONE HCL SR 40 MG TABLET PO SCH (09:31)
[2019-01-06] MEDS: POLYETHYLENE GLYCOL 3350 POWDER 17 GM/1 PACKET PO SCH (09:31)
[2019-01-06] MEDS: TAMSULOSIN HCL 0.4 MG CAP.SR.24H PO SCH (09:31)
[2019-01-06] MEDS: LISINOPRIL 10 MG TABLET PO SCH (09:31)
[2019-01-06 12:45] LABS: PATH REVIEW PATHOLOGIST REVIEWED
[2019-01-06 12:45] LABS: PATH REVIEW PATHOLOGIST REVIEWED
[2019-01-06 12:46] LABS: PATH REVIEW PATHOLOGIST REVIEWED
[2019-01-06 13:17] VITALS: BP 122/63
--- NOTE | 2019-01-07 14:22 | PDOC DISCHARGE SUMMARY ---
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 The patient has metastases from the prostate to bone (multiple areas) and liver (multiple lesions in the liver including an 11 x 7 cm mass). The tumor burden is significant. The patient did receive 2 units of packed red blood cells his hemoglobin has been stable. He will have blood work in 2 weeks and follow-up with Dr. Saida linda (2) Thrombocytopenia Is this a current diagnosis for this admission?: Yes Summary: The patient received 2 units of platelets. His platelets are still very low but appear to be stable. Recheck with hematology. (3) Pain of metastatic malignancy Is this a current diagnosis for this admission?: Yes Summary: The regimen of 40 mg of OxyContin and 30 mg of immediate release oxycodone on an as-needed basis appears to be helping. Prescriptions will be given for the 40 mg OxyContin (his medication record list 80 as a previous dose) and he already has immediate release oxycodone at home. (4) Prostate cancer metastatic to bone Is this a current diagnosis for this admission?: Yes Summary: Oncology has begun discussion with the patient regarding long-term prognosis. With the heavy tumor burden it may be appropriate to move towards palliative care or hospice. I will defer to the patient's oncologist. (5) Cancer, metastatic to liver Is this a current diagnosis for this admission?: Yes Summary: Transaminases and total bilirubin slightly improved. Continue to monitor with the oncologist. (6) Abnormal liver enzymes Is this a current diagnosis for this admission?: Yes Summary: Transaminases and bilirubin have started to improve. Continue to monitor. (7) Hypertension Is this a current diagnosis for this admission?: Yes Summary: His blood pressure was elevated at admission. It is well controlled. I did add hydrochlorothiazide to help with edema and lowered his lisinopril to 10 mg daily to compensate. (8) Constipation Is this a current diagnosis for this admission?: Yes Summary: He would benefit from Relistor or Linzess due to the high opiate load. Continue stool softeners. Laxatives if needed. (9) Jaundice Is this a current diagnosis for this admission?: Yes Summary: As noted the jaundice is starting to fade slowly. At the same time he has nota ble pallor. This gives him a somewhat sallow complexion. (10) Localized edema Is this a current diagnosis for this admission?: Yes Summary: Edema is slightly improved. Between the packed red blood cells providing increased oncotic pressure in the hydrochlorothiazide the edema should improve slowly. I also encouraged the patient to elevate his legs every several hours and consider compression stockings. - Additional Information Resuscitation Status: Full Code Prescriptions: Hydrochlorothiazide [Hydrodiuril 25 mg Tablet] 25 mg PO DAILY 30 Days #30 tablet Lisinopril [Prinivil 10 mg Tablet] 20 mg PO DAILY 30 Days #30 tablet Oxycodone HCl [Oxycontin Sr 40 mg Tablet] 40 mg PO Q12 7 Days #14 tab.sr.12h Potassium Chloride [Klor-Con 10 Meq Capsule ER] 20 meq PO DAILY 30 Days #30 capsule.er Home Medications: Docusate Sodium [Colace 100 mg Capsule] 100 mg PO DAILYP PRN 01/03/19 Gabapentin [Neurontin 300 mg Capsule] 300 mg PO Q8H 01/03/19 Oxycodone HCl 30 mg PO Q6HP PRN 01/03/19 Polyethylene Glycol 3350 [Miralax Powder 17 gm/Packet] 17 gm PO DAILYP PRN 01/03/19 Tamsulosin HCl [Flomax] 0.4 mg PO DAILY 01/03/19 Vitamin E (Dl, Acetate) [Vitamin E] 100 unit PO TID 01/03/19 Hydrochlorothiazide [Hydrodiuril 25 mg Tablet] 25 mg PO DAILY 30 Days #30 tablet 01/06/19 Lisinopril [Prinivil 10 mg Tablet] 20 mg PO DAILY 30 Days #30 tablet 01/06/19 Oxycodone HCl [Oxycontin Sr 40 mg Tablet] 40 mg PO Q12 7 Days #14 tab.sr.12h 01/06/19 Pantoprazole Sodium [Protonix [address] Tablet] 40 mg PO Q6AM tablet.dr 01/06/19 Potassium Chloride [Klor-Con 10 Meq Capsule ER] 20 meq PO DAILY 30 Days #30 capsule.er 01/06/19 Tamsulosin HCl [Flomax 0.4 mg Cap.sr] 0.4 mg PO DAILY cap.sr.24h 01/06/19 History of Present Illness Patient complains of: Patient was sent from the oncology office to the hospital for transfusions. History of Present Illness: The patient has been receiving chemotherapy for metastatic prostate cancer. He was at the oncology office prior to admission reviewing diagnostic imaging that was obtained. The CT scan revealed smaller lesions on both sides of the liver and then an 11 x 7 cm mass in the right hepatic lobe. CBC revealed hemoglobin less than 6.0 and platelet count of 25,000. The patient was referred to the hospital. His numbers were confirmed and he was referred to the hospitalist service for admission and treatment. Hospital Course Hospital Course: He had a benign hospital course. He received 2 units of packed red cells and 2 units of platelets. His numbers improved and stabilized. He is feeling much better. He is less edema in his legs with the addition of hydrochlorothiazide and leg elevation. He in fact was walking in the [place] earlier today. The patient was seen by Dr. Saida linda. He will discharge to home and follow-up with Dr. Cho in approximately 2 weeks for repeat blood work and reassessment of condition and prognosis. Physical Exam Vital Signs: Temp Pulse Resp BP Pulse Ox 99.4 F 112 H 16 129/79 H 96 01/06/19 11:21 01/06/19 11:21 01/06/19 11:21 01/06/19 11:21 01/06/19 11:21 Intake & Output 01/05/19 01/06/19 01/07/19 06:59 06:59 06:59 Intake Total 971 240 Balance 971 240 Weight 60.7 kg 60.7 kg General appearance: PRESENT: no acute distress, thin, well-developed Head exam: PRESENT: atraumatic, normocephalic Eye exam: PRESENT: conjunctiva pale, nystagmus, scleral icterus Ear exam: PRESENT: normal external ear exam Respiratory exam: PRESENT: clear to auscultation kermit, symmetrical, unlabored. ABSENT: accessory muscle use, rales, rhonchi, tachypnea, wheezes Cardiovascular exam: PRESENT: RRR, +S1, +S2 GI/Abdominal exam: PRESENT: normal bowel sounds, soft, tenderness - Still with slight tenderness right upper quadrant Rectal exam: PRESENT: deferred Extremities exam: PRESENT: pedal edema, +1 edema Musculoskeletal exam: PRESENT: ambulatory Neurological exam: PRESENT: alert, awake, oriented to person, oriented to place, oriented to time, oriented to situation, CN II-XII grossly intact Psychiatric exam: PRESENT: appropriate affect. ABSENT: agitated, anxious Focused psych exam: ABSENT: delusional, restlessness Skin exam: PRESENT: jaundice Results Laboratory Results: 01/06/19 06:35 01/06/19 06:35 01/06/19 01/06/19 06:35 06:35 WBC 3.9 L RBC 2.57 L Hgb 7.5 L Hct 21.7 L MCV 84 MCH 29.1 MCHC 34.5 RDW 15.8 H Plt Count 29 L* Seg Neutrophils % Not Reportable Lymphocytes % Not Reportable Monocytes % Not Reportable Eosinophils % Not Reportable Basophils % Not Reportable Absolute Neutrophils Not Reportable Absolute Lymphocytes Not Reportable Absolute Monocytes Not Reportable Absolute Eosinophils Not Reportable Absolute Basophils Not Reportable Sodium 134.7 L Potassium 3.8 Chloride 97 L Carbon Dioxide 31 H Anion Gap 7 BUN 18 Creatinine 0.55 Est GFR ( Amer) > 60 Est GFR (Non-Af Amer) > 60 Glucose 79 Calcium 9.9 Magnesium 1.5 L Total Bilirubin 3.0 H AST 164 H ALT 45 Alkaline Phosphatase 403 H Total Protein 5.5 L Albumin 2.5 L 01/03/19 19:14 Clean Catch Midstream Urine Culture - Final NO GROWTH 2 DAYS Qualifiers - * PATIENT BEING DISCHARGED WITH ANY OF THE FOLLOWING DIAGNOSIS: No Plan Time Spent: Greater than 30 Minutes
[2019-01-08 08:42] LABS: BAND NEUTROPHILS % (MANUAL) 13 % (3-5); METAMYELOCYTES % (MANUAL) 2 % (0); NUCLEATED RED BLOOD CELLS 4 /100 WBC (0)
[2019-01-08 08:43] LABS: SEGMENTED NEUTROPHILS % (MAN) 65 % (42-78)
== END 2019-01-06 14:29 | disposition home or self-care (01) | DRG 722 ==
LOC: ER 15:52 → UNDOADMIN 17:14 → EH 17:14 → 4N 21:50
PROVIDERS: ADMIT Hospitalist; ATTEND Hospitalist
PROC: 30233R1 Transfusion of Nonautologous Platelets into Peripheral Vein, Percutaneous Approach (ICD-10-PCS; principal; 2019-01-03)
PROC: 30233N1 Transfusion of Nonautologous Red Blood Cells into Peripheral Vein, Percutaneous Approach (ICD-10-PCS; 2019-01-03)
DX: C61 Malignant neoplasm of prostate (principal); D61.810 Antineoplastic chemotherapy induced pancytopenia; C78.7 Secondary malignant neoplasm of liver and intrahepatic bile duct; C79.51 Secondary malignant neoplasm of bone; R17 Unspecified jaundice; D63.0 Anemia in neoplastic disease; D69.6 Thrombocytopenia, unspecified; G89.3 Neoplasm related pain (acute) (chronic); I10 Essential (primary) hypertension; R00.0 Tachycardia, unspecified; K59.00 Constipation, unspecified; F17.210 Nicotine dependence, cigarettes, uncomplicated
CPT/HCPCS: 36415; 36430; 36591; 80048; 80053; 80076; 81001; 82140; 83690; 83735; 85025; 85610; 85730; 86850; 86900; 86901; 86920; 87040; 87086; 94640; 94799; 96374; 99285; J1170; J1642; J3490; J7040; P9016; P9035